=== PATIENT | female | born 1995 | race Caucasian/White ===

== ENCOUNTER 2018-06-08 17:05 | Outpatient (CLI) | payer MEDICAID, SELFPAY ==
[2018-06-08 17:18] VITALS: BMI 38.4
[2018-06-08 17:37] LABS: Red Blood Cells-Urine 0 SEEN /hpf (0-5)
[2018-06-08 17:46] LABS: Color, Urine Yellow (Yellow); Glucose, Dipstick Normal (Normal); Ketone-Dipstick 50 mg/dl (Negative); Leukocyte Esterase-Dipstick 25 /ul (Negative); Nitrite-Dipstick Negative (Negative); Occult Blood-Urine Negative /ul (Negative); Protein-Dipstick 15 mg/dl (Negative); Specific Gravity, Urine 1.025 (1.002-1.030); Urine Bilirubin Dipstick Negative (Negative); Urine Clarity Clear (Clear); Urine Urobilinogen 4 mg/dl (Normal)
[2018-06-08 18:07] LABS: White Blood Cells 0-5 SEEN /hpf (0-5)
[2018-06-08 18:08] LABS: Bacteria 1+ /hpf (None Seen); Mucous, Urine 1+ /hpf (<or=2+); Squamous Epithelial Cells - UA 0-5 SEEN /hpf (5-10)
--- NOTE | 2018-06-09 11:42 | PCM.HP.OB ---
- Problem List (1) uterine contractions in third trimester, antepartum Status: Acute (2) Dehydration during Status: Acute (3) Asymptomatic bacteriuria during Status: Acute History Date of Admission: 06/08/18 Final JEWEL: 07/23/18 Final JEWEL Source: US <20 weeks Gestational age: 33 Weeks and 5 Days History of this : This is a 23 year-old, G [], P [], at weeks gestational age. Allergies No Known Allergies Allergy (Verified 01/24/16 13:47) Home Medications: Home Medications Vits [Prenatabs FA] 1 tablet PO DAILY 06/08/18 Vitamin Smoking Status: Never smoker Alcohol: None Number of Fetus(es): 1 Heart Tracing: Baseline 140, moderate variability, + accels, No decels TOCO Analysis: Initially q 2-3 minutes, then after PO hydration ctx spaced out to q 6-7 minutes apart History Past Pregnancies: Past Pregnancies Delivery Date Name GA/Weeks Outcome Route Weight Infant Gender Labor Length Anesthesia Delivery Location Provider FOB Labs: See [facility] Record - A Neg, other NOB labs in the normal range Expected Infant Delivery Method: Spontaneous Vaginal Number of Visits: ~ 11 visits Review of Systems Unable to obtain accurate/complete ROS d/t: Assessed by bead stringer Staff Physical Exam Vitals: See RN nursing assessment note for Vitals and Assessment Assessment/Plan All Active Problems uterine contractions in third trimester, antepartum (Acute) Dehydration during (Acute) Asymptomatic bacteriuria during (Acute) This is a 23 year-old, G [1], P [0], at 35+ weeks gestational age, Contractions, Dehydration of , Presumptive UTI, Category I FHT P: 1) Once hydrated - ctx noted to space out and patient reported pain was decreased. Encouraged 5-6 bottles of water daily (60-80 fl. oz.) 2) Rx Macrobid 100mg PO BID x 7 days - Rx sent to patient's listed [facility] 3) PTL precautions reviewed - patient to return to hospital with vaginal bleeding, PPROM or >5 ctx per hour 4) RTC as scheduled to [facility] Jackelyn LABOY
--- NOTE | 2018-06-09 11:46 | HP.PCM_ITS ---
- Problem List (1) uterine contractions in third trimester, antepartum Status: Acute (2) Dehydration during Status: Acute (3) Asymptomatic bacteriuria during Status: Acute History Date of Admission: 06/08/18 Final JEWEL: 07/23/18 Final JEWEL Source: US <20 weeks Gestational age: 33 Weeks and 5 Days History of this : This is a 23 year-old, G [], P [], at weeks gestational age. Allergies No Known Allergies Allergy (Verified 01/24/16 13:47) Home Medications: Home Medications Vits [Prenatabs FA] 1 tablet PO DAILY 06/08/18 Vitamin Smoking Status: Never smoker Alcohol: None Number of Fetus(es): 1 Heart Tracing: Baseline 140, moderate variability, + accels, No decels TOCO Analysis: Initially q 2-3 minutes, then after PO hydration ctx spaced out to q 6-7 minutes apart History Past Pregnancies: Past Pregnancies Delivery Date Name GA/Weeks Outcome Route Weight Infant Gender Labor Length Anesthesia Delivery Location Provider FOB Labs: See [facility] Record - A Neg, other NOB labs in the normal range Expected Infant Delivery Method: Spontaneous Vaginal Number of Visits: ~ 11 visits Review of Systems Unable to obtain accurate/complete ROS d/t: Assessed by premium service representative Staff Physical Exam Vitals: See RN nursing assessment note for Vitals and Assessment Assessment/Plan All Active Problems uterine contractions in third trimester, antepartum (Acute) Dehydration during (Acute) Asymptomatic bacteriuria during (Acute) This is a 23 year-old, G [1], P [0], at 35+ weeks gestational age, Contractions, Dehydration of , Presumptive UTI, Category I FHT P: 1) Once hydrated - ctx noted to space out and patient reported pain was decreased. Encouraged 5-6 bottles of water daily (60-80 fl. oz.) 2) Rx Macrobid 100mg PO BID x 7 days - Rx sent to patient's listed [facility] 3) PTL precautions reviewed - patient to return to hospital with vaginal bleeding, PPROM or >5 ctx per hour 4) RTC as scheduled to [facility] Jackelyn LABOY
== END 2018-06-08 18:45 | disposition home or self-care (01) ==
LOC: WPOUT 17:14 → WP 17:24
PROVIDERS: Family Provider Student in an Organized Health Care Education/Training Program; PCP Student in an Organized Health Care Education/Training Program; Visit Provider Obstetrics & Gynecology
DX: O60.03 Preterm labor without delivery, third trimester (principal); O26.893 Other specified pregnancy related conditions, third trimester; E86.0 Dehydration; Z3A.33 33 weeks gestation of pregnancy
CPT/HCPCS: 59025; 59050; 81001; 87086; 87088; 99218; G0378

== ENCOUNTER 2018-07-01 09:40 | Outpatient (CLI) | payer MEDICAID, SELFPAY ==
[2018-07-01 10:02] VITALS: BMI 39.1
--- NOTE | 2018-07-02 12:11 | OB.TRI.NOTE ---
History of Present Illness Date of Service: 07/01/18 Was patient seen by the physician?: No Reason For Visit: R/O LABOR Date of Service: 07/01/18 Final JEWEL: 07/23/18 Final JEWEL Source: US <20 weeks Gestational age: 37 Weeks and 0 Days History of Present Illness: Presented for diarrhea and cramping. Allergies nitrofurantoin [From Macrobid] Allergy (Verified 07/01/18 10:03) Itching NST - FHR Rate Baby A Baseline: 130 Variability:: Moderate Accelerations:: 15 x 15 Decelerations:: None NST Reactive:: Yes FHR Category:: Category I Uterine Activity:: Irregular Impression/Plan A:False labor P: 1) D/C home
== END 2018-07-01 10:35 | disposition home or self-care (01) ==
LOC: WPOUT 09:44 → WP 09:44
PROVIDERS: Family Provider Student in an Organized Health Care Education/Training Program; PCP Student in an Organized Health Care Education/Training Program; Visit Provider Advanced Practice Midwife
DX: O47.1 False labor at or after 37 completed weeks of gestation (principal); Z3A.37 37 weeks gestation of pregnancy
CPT/HCPCS: 59025; 59050; 99218; G0378

== ENCOUNTER 2018-07-29 15:25 | Inpatient (IN) | payer MEDICAID, SELFPAY ==
[2018-07-29 17:14] LABS: Hemoglobin 10.9 g/dl (12.0-15.0); Mean Corp Hgb Conc 35.2 g/gl (32-36); Mean Corpuscular Hgb 29.9 pg (27.0-32.0); Mean Corpuscular Volume 84.9 fL (81-99); Mean Platelet Vol. 10.7 fl (6.2-12.0); Platelet Count 208 K/mm3 (150-450); RBC Distribution Width CV 15.2 % (11.6-14.6); RBC Distribution Width SD 45.4 fl (35.1-43.9); Red Blood Count 3.65 M/mm3 (4.2-5.4); White Blood Count 14.1 K/mm3 (4.4-11.0)
[2018-07-29 17:19] LABS: Scan Indicated on CBC? Y/N NO
[2018-07-29 17:29] VITALS: BMI 41.3
--- NOTE | 2018-07-29 18:28 | PCM.HP.OB ---
- Problem List (1) Premature rupture of membranes Status: Acute History Date of Admission: 06/08/18 Final JEWEL: 07/23/18 Final JEWEL Source: LMP Gestational age: 40 Weeks and 6 Days History of this : This is a 23 year-old, G [], P [], at weeks gestational age. Allergies nitrofurantoin [From Macrobid] Allergy (Verified 07/01/18 10:03) Itching Home Medications: Home Medications Vits [Prenatabs FA] 1 tablet PO DAILY 06/08/18 Smoking Status: Never smoker Alcohol: None Heart Tracing: FHT 150, moderate variability, accels, no decels, Category 1 Irregular uterine contractions 1cm/50%-2 per office exam. PROM, clear fluid History Past Pregnancies: Past Pregnancies Delivery Date Name GA/Weeks Outcome Route Weight Infant Gender Labor Length Anesthesia Delivery Location Provider FOB Labs: GBS negative Rubella positive HBsAG negative HIV negative A negative GC/CT negative Expected Infant Delivery Method: Spontaneous Vaginal Review of Systems Constitutional: Denies: Chills, Fever, Weight Change Cardiovascular: Denies: Chest Pain, Palpitations Respiratory: Denies: Cough, Shortness of breath at rest, Sputum production Gastrointestinal: Denies: Abdominal Pain, Nausea, Vomiting Genitourinary: Denies: Dysuria Psychiatric: Denies: Anxiety, Depression, Homicidal Ideations, Suicidal Ideations Physical Exam General: Alert, Oriented x3, No apparent distress HEENT: Atraumatic, Normocephalic Cardiovascular: Regular rate, Regular Rhythm, No murmurs Lungs: Clear to auscultation, Normal air movement, No rhonchi, No wheeze Abdomen: Gravid Extremities:: Other - BLE +1 edema, non pitting Neurological: Deep Tendon Reflexes 2+/4 and Symmetrical BONBON CREAM WARMER: Normal external genitalia Estimated gestational size: Appropriate for gestational size Presentation: Cephalic Cervix Dilation (cm): 1 Station: -2 Effacement (%): 50 Assessment/Plan All Active Problems uterine contractions in third trimester, antepartum (Acute) Dehydration during (Acute) Asymptomatic bacteriuria during (Acute) Premature rupture of membranes (Acute) This is a 23 year-old, G [1], P [0], at weeks gestational age. Premature Rupture of Membranes Post dates A: 1) Admit to L&D for PROM. 2) PO cytotec per protocol 3) IV and labs 4) Desires unmedicated . 5) for collaborative physician.
[2018-07-29] MEDS: miSOPROStol 25 MCG TABLET PO (19:26)
[2018-07-29] MEDS: 0.9% Saline Lock 10 ML Syringe IV (20:55)
[2018-07-29 22:39] LABS: Hematocrit 31.7 % (37-47); Hemoglobin 10.8 g/dl (12.0-15.0); Mean Corp Hgb Conc 34.1 g/gl (32-36); Mean Platelet Vol. 10.3 fl (6.2-12.0); Platelet Count 186 K/mm3 (150-450); RBC Distribution Width CV 15.6 % (11.6-14.6); Red Blood Count 3.73 M/mm3 (4.2-5.4); Scan Indicated on CBC? Y/N NO; White Blood Count 12.6 K/mm3 (4.4-11.0)
[2018-07-29 22:41] LABS: AST(SGOT) 9 U/L (15-37); Alanine Aminotransfer ALT/SGPT 9 U/L (13-56); Creatinine, Serum 0.73 mg/dL (0.55-1.02); EST Glomerular Filtration Rate 107 mL/min (>60); Est Glom Filt Rate - Afr Amer 129 mL/min (>60); Estimated Creatinine Clearance 100.84 ml/min; Uric Acid 4.2 mg/dL (2.6-6.0)
[2018-07-29 22:43] LABS: International Normalized Ratio 1.1; Prothrombin Time (Protime)PT. 13.7 SECONDS (11.7-14.9)
[2018-07-29 22:44] LABS: Partial Thromboplast Time 30.7 Seconds (24.1-36.2)
[2018-07-29 22:48] LABS: Protein, Urine (Random) 20.6 mg/dL (<11.9); Protein:Creat Ratio 389 mg/g CRE (0-200)
[2018-07-30] MEDS: miSOPROStol 25 MCG TABLET PO ×2 (00:06→04:46)
[2018-07-30] MEDS: Nalbuphine 10 MG/ML Ampul IV (01:27)
[2018-07-30] MEDS: 0.9% Saline Lock 10 ML Syringe IV (01:33)
[2018-07-30] MEDS: Lactated Ringers 1,000 ML 50 ML IV ×3 (04:25→23:11)
[2018-07-30] MEDS: Magnesium Sulfate 20 GM/500 ML BAG IV ×3 (04:46→13:52)
--- NOTE | 2018-07-30 07:47 | PCM.PN.BLA ---
Progress Note Severe range BP's noted around 10pm overnight. Pre-e labs obtained and nml, p/c ratio elevated. BP's then normal. Severe range BP again around 3:30 am. Given persistent severe range BP's and elevated p/c ratio, mag bolus followed by gtt started for seizure prophylaxis for severe pre-e. 20mg IV labetalol given around 6am this morning for another severe range BP. Repeat pre-e labs this morning.
[2018-07-30] MEDS: Labetalol 100 MG Tablet PO ×2 (08:17→20:35)
[2018-07-30 09:06] LABS: Hematocrit 30.7 % (37-47); Hemoglobin 10.5 g/dl (12.0-15.0); Mean Corp Hgb Conc 34.2 g/gl (32-36); Mean Corpuscular Hgb 29.1 pg (27.0-32.0); Mean Platelet Vol. 10.4 fl (6.2-12.0); Platelet Count 184 K/mm3 (150-450); RBC Distribution Width CV 15.6 % (11.6-14.6); RBC Distribution Width SD 48.3 fl (35.1-43.9); Red Blood Count 3.61 M/mm3 (4.2-5.4); White Blood Count 17.5 K/mm3 (4.4-11.0)
[2018-07-30 09:07] LABS: Scan Indicated on CBC? Y/N NO
[2018-07-30] MEDS: Oxytocin 30 units/NS 500 ml 30 UNITS/500 ML IV.SOLN IV (09:09)
[2018-07-30 09:12] LABS: International Normalized Ratio 1.1; Prothrombin Time (Protime)PT. 13.9 SECONDS (11.7-14.9)
[2018-07-30 09:13] LABS: Partial Thromboplast Time 30.7 Seconds (24.1-36.2)
[2018-07-30] MEDS: fentaNYL-bupivacaine (epidural) 100 ML BAG EPIDURAL ×2 (09:30→14:26)
[2018-07-30 09:38] LABS: Albumin, Serum 2.7 g/dL (3.2-5.0); BUN 9 mg/dL (7-18); BUN/Creat Ratio 13.4 RATIO (10-20); Creatinine, Serum 0.67 mg/dL (0.55-1.02); EST Glomerular Filtration Rate 118 mL/min (>60); Est Glom Filt Rate - Afr Amer 142 mL/min (>60); Estimated Creatinine Clearance 109.87 ml/min; Glucose 89 mg/dL (74-106); Protein, Total 6.7 g/dL (6.4-8.2); Uric Acid 4.4 mg/dL (2.6-6.0)
[2018-07-30 09:39] LABS: ALB/GLOB Ratio 0.7 RATIO (0.9-2.4); AST(SGOT) 9 U/L (15-37); Alanine Aminotransfer ALT/SGPT 10 U/L (13-56); Alkaline Phosphatase 218 U/L (45-117); Anion Gap 12 (5-15); Calcium,Total 7.8 mg/dL (8.5-10.1); Chloride 104 mmol/L (98-107); Potassium 3.3 mmol/L (3.5-5.1); Sodium Level 137 mmol/L (136-145)
[2018-07-30] MEDS: Ondansetron 4 MG/2 ML Vial IV ×2 (12:40→20:34)
--- NOTE | 2018-07-30 13:34 | PCM.PN.BLA ---
Progress Note S: Patient comfortable with epidural O: Cvx - /-2 FSE placed fhts - 135 with mod variability, accels; s/p period of minimal to moderate variability tocos - Q2-3 min A&P: continue pitocin induction severe preE - BP's reviewed & normal, on Mg
--- NOTE | 2018-07-30 13:38 | PN_ITS ---
Progress Note S: Patient comfortable with epidural O: Cvx - /-2 FSE placed fhts - 135 with mod variability, accels; s/p period of minimal to moderate varia bility tocos - Q2-3 min A&P: continue pitocin induction severe preE - BP's reviewed & normal, on Mg
[2018-07-30] MEDS: Acetaminophen 325 MG Tablet PO ×2 (14:37→20:35)
--- NOTE | 2018-07-30 17:16 | PCM.PN.BLA ---
Progress Note S: Patient comfortable with epidural O: cvx - 4.5/100/-2 fhts 140 with moderate variability, variables & accels, still having periods of minimal variability tocos Q1-4 minutes A&P: continue pitocin induction FWB - remains overall reassuring, strip reviewed with nursing staff continue Mg for preE
[2018-07-30] MEDS: Oxytocin 30 units/NS 500 ml 30 UNITS/500 ML IV.SOLN 334 UNITS IV (22:23)
[2018-07-30] MEDS: Oxytocin 30 units/NS 500 ml 30 UNITS/500 ML IV.SOLN 167 UNITS IV (23:00)
--- NOTE | 2018-07-30 23:04 | PCM.OB.VAG ---
Vaginal Delivery Maternal Presentation: Active Labor Method of Induction: Pitocin, Amniotomy, Cytotec Medical Reason for Induction: Preeclampsia, eclampsia, - - SROM Amniotic Fluid Description: Moderate meconium - just before delivery & was previously clear Final JEWEL: 07/23/18 Gestational age: 41 Weeks and 0 Days Date of Procedure: 07/30/18 Pre-Operative Diagnosis: SROM, Severe preeclampsia Post-Operative Diagnosis: Same Surgery/ Procedure Performed: Spontaneous Vaginal Delivery Type of Anesthesia: Epidural Description of Procedure: Patient prepped & draped when c/c/+2. She pushed well to +3 station. FSE showed tachycardia. Then then FSE was not reading. External monitoring was attempted but FHT's were similar to maternal heart rate. 2nd degree episiotomy cut. Patient then pushed & the head delivered with the assistance of the Ritgen maneuver. The head was gently guided to allow delivery of the anterior & posterior shoulders. No excess traction placed on the head. Body delivered. 3VC clamped & cut. Infant taken to the warmer where pediatrics team present. Placenta delivered with gentle traction. Good uterine tone obtained. Presentation: MELITA Placental Delivery Description: Expressed Placenta Disposition: [facility] Cord Vessel Description: 3 Vessels Cord Gases drawn per routine: ABG, VBG Cord Entanglement: None Estimated Blood Loss: 350ml Infant A gender: Male (1 minute): 8 (5 minute): 9 Episiotomy Description: Midline - repaired with 3-0 vicryl, 2nd degree Laceration: None Medications given after delivery: IV Pitocin
[2018-07-31] VITALS (21 sets, daily range): BP systolic 99–136; BP diastolic 47–87; PULSE 77–118; RESP 14–18; TEMP 35.9–37.3; O2SAT 97–98
[2018-07-31] MEDS: Magnesium Sulfate 20 GM/500 ML BAG IV ×2 (00:09→10:12)
[2018-07-31] MEDS: Ibuprofen 600 MG Tablet PO ×3 (01:45→18:10)
[2018-07-31] MEDS: Dibucaine 30 GM Tube 1 APPLIC TOPICAL (03:13)
--- NOTE | 2018-07-31 07:54 | PCM.PN.OB ---
Patient Problems: Active and Suspected Problems Premature rupture of membranes (Acute) Subjective: Patient sitting up in bed at this time - just finishing session. Denies any issues or complaints. Reports some muscle soreness, cramping and rectal/perineal discomfort secondary to healing of episiotomy. Patient denies headache, denies heavy bleeding. Magnesium Sulfate IV infusing as ordered until ~2200 this evening. Objective: Nipples without cracks or blisters FF midline 2FB below umbilicus Neuro exam WNL, +2/4 reflexes in LE without clonus Small rubra lochia - Physical Exam General: Alert, Oriented x3, Cooperative HEENT: PERRLA Neck: Supple Lungs: Normal air movement Cardiovascular: Regular rate, Regular Rhythm Abdomen: Non Tender, Non-Distended Extremities: No Calf Tenderness, Peripheral Pulses Normal Skin: No rashes, No breakdown Musculoskeletal: No Tenderness to Palpation of Joints or Extremities Neurological: Deep Tendon Reflexes 2+/4 and Symmetrical Psych/Mental Status: Normal Affect, Alert and oriented to time, place, person, mood and affect Vital Signs Temp Pulse Resp BP Pulse Ox 97.0 F L 104 H 16 118/49 L 97 07/31/18 07:00 07/31/18 07:00 07/31/18 07:00 07/31/18 07:00 07/31/18 07:00 Oxygen Delivery Method Room Air Weight: 233 lb 9.6 oz Body Mass Index (BMI) 41.3 Intake and Output for Last 24 Hours 07/29/18 07/30/18 07/31/18 23:59 23:59 23:59 Intake Total 2445 / 2445 785 / 785 Output Total 150 / 150 1330 / 1330 2375 / 2375 Balance -150 / -150 1115 / 1115 -1590 / -1590 Laboratory Tests Past 24 Hrs 07/30/18 07/30/18 07/30/18 08:50 08:50 08:50 WBC 17.5 H RBC 3.61 L Hgb 10.5 L Hct 30.7 L MCV 85.0 MCH 29.1 MCHC 34.2 RDW 15.6 H RDW Differential 48.3 H Plt Count 184 MPV 10.4 PT 13.9 INR 1.1 APTT 30.7 Sodium 137 Potassium 3.3 L Chloride 104 Carbon Dioxide 21.0 Anion Gap 12 BUN 9 Creatinine 0.67 Estim Creat Clear Calc 109.87 Est GFR (MDRD) Af Amer 142 Est GFR (MDRD) Non-Af 118 BUN/Creatinine Ratio 13.4 Glucose 89 Uric Acid 4.4 Calcium 7.8 L Total Bilirubin 1.00 AST 9 L ALT 10 L Alkaline Phosphatase 218 H Total Protein 6.7 Albumin 2.7 L Globulin 4.0 Albumin/Globulin Ratio 0.7 L Medical Necessity - Tobacco Use Smoking Status: Never smoker Assessment/Plan All Active Problems uterine contractions in third trimester, antepartum (Acute) Dehydration during (Acute) Asymptomatic bacteriuria during (Acute) Premature rupture of membranes (Acute) 23 y/o s/p with complication of pre-eclampsia with severe features, PPD #1 P: 1) Continue IV Magnesium sulfate as ordered until 24 hours PP 2) Last BP low - consult with Dr. Silvestre, will hold upcoming Labetalol dose at this time. Will reinitiate Labetalol if elevated blood pressures are still noted 3) consultation today 4) Continue PP orders Jackelyn LABOY
[2018-07-31] MEDS: Acetaminophen 500 MG Tablet 1000 MG PO ×2 (08:25→17:04)
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
--- NOTE | 2018-07-31 14:20 | NURSING ---
This nursing unit coordinator reviewed the charting completed by the student nurse, Keke Bunch.
--- NOTE | 2018-07-31 22:00 | NURSING ---
mag campos'kyra at this time as ordered
[2018-07-31] MEDS: 0.9% Saline Lock 10 ML Syringe IV (22:18)
[2018-08-01] VITALS (11 sets, daily range): BP systolic 118–141; BP diastolic 57–83; PULSE 97–107; RESP 16–18; TEMP 36.6–37.1; O2SAT 97–98
[2018-08-01] MEDS: Dibucaine 30 GM Tube 1 APPLIC TOPICAL (02:05)
--- NOTE | 2018-08-01 08:39 | PCM.PN.OB ---
Patient Problems: Active and Suspected Problems Premature rupture of membranes (Acute) Subjective: Patient denies complaints. - Physical Exam General: Alert, Oriented x3 Abdomen: Soft, Non Tender, Non-Distended - ff mid & below umb Extremities: No Calf Tenderness, Edema - 2+ Vital Signs Temp Pulse Resp BP Pulse Ox 98.3 F 102 H 16 135/76 H 98 08/01/18 02:00 08/01/18 05:05 08/01/18 05:05 08/01/18 05:05 08/01/18 05:05 Oxygen Delivery Method Room Air Weight: 233 lb 9.6 oz Body Mass Index (BMI) 41.3 Intake and Output for Last 24 Hours 07/30/18 07/31/18 08/01/18 23:59 23:59 23:59 Intake Total 2445 / 2445 3352 / 3352 Output Total 1330 / 1330 4199 / 4199 750 / 750 Balance 1115 / 1115 -847 / -847 -750 / -750 Medical Necessity - Tobacco Use Smoking Status: Never smoker Assessment/Plan All Active Problems uterine contractions in third trimester, antepartum (Acute) Dehydration during (Acute) Asymptomatic bacteriuria during (Acute) Premature rupture of membranes (Acute) PPD#2 Severe preE - s/p Mg, BP's trending up but still normal. Will monitor today. Possible discharge home later today if BP's remain normal. Routine care.
--- NOTE | 2018-08-01 13:23 | PCM.DCVAG ---
Discharge Diet: No Restrictions Discharge Activity: May Drive, May Shower May resume sexual activity in: 6 weeks Weight Bearing Status: Weight bearing as tolerated Additional Instructions: If you experience any of the following, contact your healthcare provider. Bleeding that soaks a pad every hour for 2 hours Fever 100.4 or higher Unrelieved incision or abdominal pain Swelling, redness, discharge or bleeding from your incision or episiotomy site Your incision begins to separate Problems urinating (including inability to urinate or burning while urinating). Visual changes Severe headache Flu-like symptoms Pain or redness in one of both of your breasts Pain, warmth, tenderness or swelling in your legs, especially the calf area Frequent nausea and vomiting Symptoms of depression or anxiety If you experience any of the following, call 911 or go to the nearest Emergency Room. Chest pain Problems breathing Seizure activity Partial or complete paralysis of a body part, slurred speech, weakness or drooping of the face, or a sudden inability to walk or hold your balance Allergies/Adverse Reactions: Allergies nitrofurantoin [From Macrobid] Allergy (Verified 07/29/18 19:59) Itching Medications to take at Discharge Vits [Prenatabs FA ] 1 tablet PO DAILY 06/08/18 Primary Care Physician: Constantine Slater DO [Primary Care Provider] - Test Results: Test results from this visit will be discussed in further detail at your follow-up appointment, if applicable.
--- NOTE | 2018-08-01 13:26 | DCINST_ITS ---
Discharge Diet: No Restrictions Discharge Activity: May Drive, May Shower May resume sexual activity in: 6 weeks Weight Bearing Status: Weight bearing as tolerated Additional Instructions: If you experience any of the following, contact your healthcare provider. * Bleeding that soaks a pad every hour for 2 hours * Fever 100.4 or higher * Unrelieved incision or abdominal pain * Swelling, redness, discharge or bleeding from your incision or episiotomy site * Your incision begins to separate * Problems urinating (including inability to urinate or burning while urinating). * Visual changes * Severe headache * Flu-like symptoms * Pain or redness in one of both of your breasts * Pain, warmth, tenderness or swelling in your legs, especially the calf area * Frequent nausea and vomiting * Symptoms of depression or anxiety If you experience any of the following, call 911 or go to the nearest Emergency Room. * Chest pain * Problems breathing * Seizure activity * Partial or complete paralysis of a body part, slurred speech, weakness or drooping of the face, or a sudden inability to walk or hold your balance Allergies/Adverse Reactions: Allergies nitrofurantoin [From Macrobid] Allergy (Verified 07/29/18 19:59) Itching Medications to take at Discharge Vits [Prenatabs FA ] 1 tablet PO DAILY 06/08/18 Primary Care Physician: Constantine Slater DO [Primary Care Provider] - Test Results: Test results from this visit will be discussed in further detail at your follow- up appointment, if applicable.
--- NOTE | 2018-08-01 15:28 | NURSING ---
Dr. Mojica notified that pt's BP is 141/72, sitting, on left arm. Order to start labetolol 100 mg po BID-starting now and then again at 2200 tonight.
[2018-08-01] MEDS: Labetalol 100 MG Tablet PO ×2 (15:55→22:44)
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
[2018-08-01] MEDS: Senna/Docusate Sodium 1 Tablet PO (20:06)
[2018-08-02 00:08] VITALS: BP 131/60; PULSE 96
[2018-08-02] MEDS: Acyclovir 200 MG Capsule 400 MG PO ×2 (00:08→06:21)
[2018-08-02] MEDS: Labetalol 100 MG Tablet PO (00:08)
[2018-08-02 04:25] VITALS: BP 131/68; PULSE 95; RESP 16; TEMP 36.5; O2SAT 98
[2018-08-02 08:00] VITALS: BP 132/69; PULSE 85; RESP 18; TEMP 36.6; O2SAT 99
--- NOTE | 2018-08-02 08:47 | PCM.PN.BLA ---
Progress Note S: Patient doing well. Brie reg diet without N/V. Ambulating and voiding without difficulty. No BM. Lochia normal. Pumping and supplementing with formula. No fevers, LÓPEZ, vision changes, RUQ pain, epigastric pain. No uncontrolled pain. No leg pain. O: AF, VSS, BP normal on labetalol Gen: NAD, well appearing Chest: No increased resp effort Abd: Soft, nontender LE: +Edema bilaterally, no calf tenderness A/P: Doing well . D/c home today. She is unsure of control. Discussed with her to call to follow up in 1 week for BP check and in 4-6 weeks. Will send rx for Labetalol and Acyclovir for cold sores. Reviewed warning signs/symptoms of pre-e. Reviewed return precautions
--- NOTE | 2018-08-02 08:51 | PCM.DCVAG ---
Discharge Diet: No Restrictions Discharge Activity: Return to Normal Activity, May Shower May resume sexual activity in: 6 weeks Weight Bearing Status: Weight bearing as tolerated Call your doctor if you observe: Fever of 101 or Higher, Inability to urinate, Inability to have a bowel movement, Using more than one pad per hour, Shortness of breath, Chest pain, Calf discomfort, Uncontrolled pain Additional Instructions: If you experience any of the following, contact your healthcare provider. Bleeding that soaks a pad every hour for 2 hours Fever 100.4 or higher Unrelieved incision or abdominal pain Swelling, redness, discharge or bleeding from your incision or episiotomy site Your incision begins to separate Problems urinating (including inability to urinate or burning while urinating). Visual changes Severe headache Flu-like symptoms Pain or redness in one of both of your breasts Pain, warmth, tenderness or swelling in your legs, especially the calf area Frequent nausea and vomiting Symptoms of depression or anxiety If you experience any of the following, call 911 or go to the nearest Emergency Room. Chest pain Problems breathing Seizure activity Partial or complete paralysis of a body part, slurred speech, weakness or drooping of the face, or a sudden inability to walk or hold your balance Allergies/Adverse Reactions: Allergies nitrofurantoin [From Macrobid] Allergy (Verified 07/29/18 19:59) Itching Medications to take at Discharge Vits [Prenatabs FA ] 1 tablet PO DAILY 06/08/18 When: Follow up in 1 week for BP check and in 4-6 weeks. Primary Care Physician: Constantine Slater DO [Primary Care Provider] - Test Results: Test results from this visit will be discussed in further detail at your follow-up appointment, if applicable.
--- NOTE | 2018-08-02 08:52 | DCINST_ITS ---
Discharge Diet: No Restrictions Discharge Activity: Return to Normal Activity, May Shower May resume sexual activity in: 6 weeks Weight Bearing Status: Weight bearing as tolerated Call your doctor if you observe: Fever of 101 or Higher, Inability to urinate, Inability to have a bowel movement, Using more than one pad per hour, Shortness of breath, Chest pain, Calf discomfort, Uncontrolled pain Additional Instructions: If you experience any of the following, contact your healthcare provider. * Bleeding that soaks a pad every hour for 2 hours * Fever 100.4 or higher * Unrelieved incision or abdominal pain * Swelling, redness, discharge or bleeding from your incision or episiotomy site * Your incision begins to separate * Problems urinating (including inability to urinate or burning while urinating). * Visual changes * Severe headache * Flu-like symptoms * Pain or redness in one of both of your breasts * Pain, warmth, tenderness or swelling in your legs, especially the calf area * Frequent nausea and vomiting * Symptoms of depression or anxiety If you experience any of the following, call 911 or go to the nearest Emergency Room. * Chest pain * Problems breathing * Seizure activity * Partial or complete paralysis of a body part, slurred speech, weakness or drooping of the face, or a sudden inability to walk or hold your balance Allergies/Adverse Reactions: Allergies nitrofurantoin [From Macrobid] Allergy (Verified 07/29/18 19:59) Itching Medications to take at Discharge Vits [Prenatabs FA ] 1 tablet PO DAILY 06/08/18 When: Follow up in 1 week for BP check and in 4-6 weeks. Primary Care Physician: Constantine Slater DO [Primary Care Provider] - Test Results: Test results from this visit will be discussed in further detail at your follow- up appointment, if applicable.
[2018-08-02 10:20] VITALS: BP 135/84; PULSE 87
[2018-08-02] MEDS: Labetalol 100 MG Tablet 200 MG PO (10:20)
== END 2018-08-02 11:15 | disposition home or self-care (01) | DRG 372 ==
PROVIDERS: Obstetrics & Gynecology; Admitting Provider Obstetrics & Gynecology; Family Provider Student in an Organized Health Care Education/Training Program; PCP Student in an Organized Health Care Education/Training Program; Referring Provider Obstetrics & Gynecology; Visit Provider Obstetrics & Gynecology
DX: O15.1 Eclampsia complicating labor (principal); Z37.0 Single live birth; O77.0 Labor and delivery complicated by meconium in amniotic fluid; O48.0 Post-term pregnancy; Z3A.41 41 weeks gestation of pregnancy; O76 Abnormality in fetal heart rate and rhythm complicating labor and delivery; O42.92 Full-term premature rupture of membranes, unspecified as to length of time between rupture and onset of labor
CPT/HCPCS: 59025; 59050; 80053; 82565; 82570; 84156; 84450; 84460; 84550; 85027; 85610; 85730; 86850; 86900; 99218; J7120; A4216; G0378; J2405; J3490

== ENCOUNTER → 2020-09-16 11:23 | Outpatient (CLI) | payer MEDICAID, SELFPAY ==
[2020-09-16 10:14] VITALS: BMI 41.1
--- NOTE | 2020-09-16 11:26 | US_ITS ---
STUDY: FIRST TRIMESTER OBSTETRICAL ULTRASOUND REASON FOR EXAM: Female, 25 years old viability LMP: 07/26/2020 TECHNIQUE: Transvaginal TECHNICAL QUALITY: Adequate. PRIOR ULTRASOUND: None. FINDINGS: There is visualization of a single gestational sac in a normal intrauterine position. The mean sac diameter (MSD) measures 1.89 cm, indicating an estimated gestational age (EGA) of 6 weeks, 6 days. The gestational sac shape is within normal limits. There is no demonstrated yolk sac. The placenta is non-visualized. There is no demonstrated embryo ( pole). The estimated gestation age (EGA) by LMP is 7 weeks, 3 days. The estimated date of delivery (JEWEL) by LMP is 04/24/2021. The estimated gestation age (EGA) by US is 6 weeks, 6 days. The estimated date of delivery (JEWEL) by US is 05/06/2021. The uterus measures 11.5 cm x 7.9 cm x 6 cm. There is no demonstrated uterine fibroid. The cervix is closed. The right ovary is nonvisualized. The left ovary measures 2.5 cm x 2.3 cm x 1.3. There is no left ovarian cyst. There is no visualized left adnexal mass or complex lesion. There is no fluid in the cul de sac. US/Init OB < 14Wks US IMPRESSION: Intrauterine gestational sac corresponding to a gestational age of 6 weeks and 6 days. No yolk sac or pole is seen at this time. Electronically Signed: Aureliano Sim, at 12:35 EST , Service support ,
== END ==
PROVIDERS: PCP Student in an Organized Health Care Education/Training Program; Referring Provider Obstetrics & Gynecology; Visit Provider Obstetrics & Gynecology
DX: O36.80X0 Pregnancy with inconclusive fetal viability, not applicable or unspecified (principal); Z3A.00 Weeks of gestation of pregnancy not specified
CPT/HCPCS: 76801

== ENCOUNTER → 2020-09-23 12:47 | Outpatient (CLI) | payer MEDICAID, SELFPAY ==
[2020-09-16 10:14] VITALS: BMI 41.1
[2020-09-16 12:59] VITALS: BMI 41.1
--- NOTE | 2020-09-23 12:52 | US_ITS ---
STUDY: FIRST TRIMESTER OBSTETRICAL ULTRASOUND REASON FOR EXAM: Female, 25 years old viability LMP: Unknown. TECHNIQUE: Transvaginal TECHNICAL QUALITY: Adequate. PRIOR ULTRASOUND: Comparison is made with prior study dated 09/16/2020. FINDINGS: There is visualization of a single gestational sac in a normal intrauterine position. The mean sac diameter (MSD) measures 2 cm, indicating an estimated gestational age (EGA) of 6 weeks, 6 days. The gestational sac shape is within normal limits. There is no demonstrated yolk sac. The placenta is non-visualized. There is no demonstrated embryo ( pole). The estimated gestation age (EGA) by LMP is 9 weeks, 6 days. The estimated date of delivery (JEWEL) by LMP is 04/22/2021. The estimated gestation age (EGA) by US is 60 weeks, 6 days. The estimated date of delivery (JEWEL) by US is 05/13/2020. The uterus measures 11.1 cm x 7.4 cm x 6.9 cm. There is no demonstrated uterine fibroid. The cervix is closed. The right ovary is nonvisualized. The left ovary measures 3 cm x 1.4 cm x 1.6 cm. There is no left ovarian cyst. There is no visualized left adnexal mass or complex lesion. There is no fluid in the cul de sac. US/Transvaginal w/Preg US IMPRESSION: Intrauterine gestational sac. No evidence of a yolk sac or pole. This may represent a blighted ovum. Electronically Signed: Aureliano Sim, at 13:37 EST , Service support ,
== END ==
PROVIDERS: PCP Student in an Organized Health Care Education/Training Program; Referring Provider Obstetrics & Gynecology; Visit Provider Obstetrics & Gynecology
DX: Z34.90 Encounter for supervision of normal pregnancy, unspecified, unspecified trimester (principal)
CPT/HCPCS: 76817

== ENCOUNTER 2020-09-28 21:01 | Emergency (ER) | payer MEDICAID, SELFPAY ==
[2020-09-28 15:09] VITALS: BMI 40.6
[2020-09-28 21:02] VITALS: BP 150/100; PULSE 93; RESP 18; TEMP 36.3; O2SAT 96; BMI 40.9
--- NOTE | 2020-09-28 21:16 | US_ITS ---
STUDY: FIRST TRIMESTER OBSTETRICAL ULTRASOUND REASON FOR EXAM: Female, 25 years old LIGHT BLEEDING WITH --GETTING HEAVIER RECENTLY LMP: 07/25/2020 TECHNIQUE: Transvaginal TECHNICAL QUALITY: Adequate. PRIOR ULTRASOUND: 09/23/2020 FINDINGS: There is visualization of a single gestational sac in a normal intrauterine position. The mean sac diameter (MSD) measures 1.97 cm, indicating an estimated gestational age (EGA) of 6 weeks, 6 days. The gestational sac shape is within normal limits. There is no demonstrated yolk sac. The placenta is non-visualized. There is no demonstrated embryo ( pole). The estimated gestation age (EGA) by LMP is 9 weeks, 2 days. The estimated date of delivery (JEWEL) by LMP is 05/01/2021. The estimated gestation age (EGA) by US is 6 weeks, 6 days. The estimated date of delivery (JEWEL) by US is 05/18/2021. The uterus measures 11.7 x 9 x 6.2 cm. There is no demonstrated uterine fibroid. The cervix is closed. The right ovary measures 2.7 x 2.2 x 2.2 cm. There is a 1.5 x 1.2 x 1.2 cm right ovarian cyst. There is no visualized right adnexal mass or complex lesion. The left ovary measures 3 x 2.2 x 1.5 cm. There is no left ovarian cyst. There is no visualized left adnexal mass or complex lesion. There is no fluid in the cul de sac. US/Transvaginal w/Preg US IMPRESSION: Intrauterine gestational sac without pole or yolk sac at 6 weeks 6 day gestation IV suspicious for blighted ovum. No adnexal masses, large pelvic fluid or ovarian torsion. Electronically Signed: Albertina Amezquita MD at 0:00 EST , Service support ,
--- NOTE | 2020-09-28 22:48 | ED.VISSUMM ---
- ER Visit Summary Date of Service: 09/28/20 Chief Complaint: Vaginal bleeding in History of Present Illness: The patient is a 25 F presenting with vaginal bleeding in . She states this started 2 days ago. She states it started out as light spotting and is now similar to light period She denies abdominal cramping. She is G2, P1. She believes she is approximately 6 to 8 weeks . Physical Examination: Vitals are stable. Patient is afebrile. Alert no acute distress. HEENT exam is unremarkable. Neck is supple. Lungs are clear and equal bilaterally. Heart is regular rate and rhythm. Abdomen is soft nontender nondistended. No guarding or rebound Pelvic exam: declined Extremities are unremarkable. Skin is warm and dry. Remainder of exam is unremarkable. Emergency Department Course and Treatment: hCG quant [id number]. Blood type A negative. Pelvic ultrasound shows Intrauterine gestational sac without pole or yolk sac at 6 weeks 6 day gestation IV suspicious for blighted ovum. No adnexal masses, large pelvic fluid or ovarian torsion. Patient is resting comfortably on reevaluation. Discussed with Dr. Moore. She has an appointment with her tomorrow. Patient will follow-up tomorrow as scheduled. Advised return to the ED for worsening complaints. Disposition: Discharge home Impression: Vaginal bleeding in , blighted ovum This note was generated with Dodon[employer] dictation software. It may contain incorrect words, spelling, and punctuation that were not noted in review of the chart prior to signing ED Disposition - Plan for ED Patient: Instructions: ED Possible Miscarriage Threatened Referrals: Sharmin Moore MD [STAFF PHYSICIAN] -
[2020-09-28 23:02] LABS: hCG Titer Quant., Serum 19047 mIU/mL (1-3)
[2020-09-28 23:18] VITALS: BP 133/65; PULSE 75; RESP 16; O2SAT 100
[2020-09-29] MEDS: Acetaminophen 500 MG Tablet 1000 MG PO (00:04)
--- NOTE | 2020-09-29 00:16 | ED.DEP ---
ED Disposition - Plan for ED Patient: Instructions: ED Possible Miscarriage Threatened Referrals: Sharmin Moore MD [STAFF PHYSICIAN] -
--- NOTE | 2020-09-29 07:49 | ED.RN ---
Lab called and needed rhogam paperwork printed out. Order entered and sent to lab.
== END 2020-09-29 01:24 | disposition home or self-care (01) ==
LOC: ED 21:44
PROVIDERS: Emergency Provider Emergency Medicine; PCP Student in an Organized Health Care Education/Training Program
DX: O46.90 Antepartum hemorrhage, unspecified, unspecified trimester (principal); O02.0 Blighted ovum and nonhydatidiform mole; Z3A.01 Less than 8 weeks gestation of pregnancy
CPT/HCPCS: 36415; 76817; 84702; 86900; 86901; 90384; 96372; 99282; J2790

== ENCOUNTER 2020-10-01 12:47 | Day surgery (SDC) | payer MEDICAID, SELFPAY ==
[2020-09-29 10:48] VITALS: BMI 40.6
[2020-10-01] VITALS (7 sets, daily range): BP systolic 112–127; BP diastolic 61–71; PULSE 77–95; RESP 16–18; TEMP 36.8–37.7; O2SAT 95–99; BMI 40.4
--- NOTE | 2020-10-01 13:02 | HP.PCM_ITS ---
- Problem List (1) Missed Status: Acute History and Physical Date of Admission: 10/01/20 Intake Vital Signs 09/29/20 Height 5 ft 5 in 09/29/20 Weight: 244 lb 09/28/20 BMI 40.6 Intake Visit Reasons: ?SAB Chief Complaint: possible SAB ER follow up Collision Repairer Required: No Is patient in pain?: No Allergies nitrofurantoin [From Macrobid] Allergy (Verified 09/29/20 10:49) Itching Medications ibuprofen 800 mg tablet 800 mg PO Q8H PRN #30 tab 09/29/20 [Rx Confirmed 09/29/20] misoprostol 200 mcg tablet 800 mcg PO Q24H 1 Days #8 tab 09/29/20 [Rx Confirmed 09/29/20] oxycodone-acetaminophen 5 mg-325 mg tablet 1 tab PO Q6H PRN #8 tab 09/29/20 [Rx Confirmed 09/29/20] Post menopausal: No Patient : Yes : No [facility] Surgical History (Updated 09/29/20 @ 10:49 by Guerline Aguiar) History of ankle surgery (Acute) S/P right knee surgery (Resolved) Family History Mother Diabetes Hypertension Brother Diabetes Grandfather Diabetes Father CVA (cerebral vascular accident) Hypertension Grandmother Breast cancer Lung cancer Social History (Updated 09/29/20 @ 12:[address] Yumiko Obrien MD) Smoking Status: Never smoker alcohol intake: never substance use type: does not use caffeine: Yes what type of physical activity do you participate in: walking seatbelt use: always do you feel safe at home: Yes additional social history: Boyfriend-[place] ROMANO ?SAB: Details: JOE MARIEE is a 25 year old who presents for follow-up of viability. Seen in ER last night for bleeding. Had passage of quarter sized clots after seen in ER. Reports cramping after ultrasound, but otherwise not having pain. update- 10/01 now having incresaed pain and crmaping, requesting to proceed with d and c Pregancy History 2 Elective abortions Hx Para 1 Spontaneous abortions Hx # Term Pregnancies Ectopic pregnancies Hx # Pregnancies Multiple births # of living children Past Pregnancies Del. Date Name GA/Weeks Outcome Route Bth Weight [facility] live - full term 9lbs 1oz Male 36 hours epidural [facility] Dr. Yunior Callahan Delivery Date: 07/30/18 Pre-eclampsia during labor, HR decels, episiotomy Flakita,Marsha ROS Const Constitutional: Denies chills, fatigue or fever(s) : Denies blood in urine, pelvic pain, urinary urgency, vaginal discharge, vaginal dryness, vaginal odor or vaginal itching Exam Const General: cooperative, healthy appearing, comfortable, well developed, well groomed Neck Neck: normal visual inspection, full ROM Resp Effort & Inspection: normal respiratory effort, able to speak in complete sentences, symmetric chest movement Cardio Rate: regular rate Skin General: no rashes or lesions noted, elasticity normal, turgor normal Lesions: no lesions Rashes: no rashes Neuro General: alert, awake, oriented x3 Cranial Nerves: CN's II-XI intact bilaterally, PERRL, EOM intact bilaterally Cognition: normal cognition Speech: speech normal Gait: normal gait Extrem General: normal to inspection, full ROM, no pedal edema Psych Appearance: grossly normal Mental Status: mental status grossly normal Mood: congruent mood Affect: normal affect Speech and Movement: speech and movement normal Attitude: cooperative Thought Process: normal Thought Content: normal Assessment & Plan 1. Missed O02.1 Plan plan suction d and c due to persistent cramping and patient request. After discussing the patient's diagnosis and treatment plan options, patient wishes to proceed with surgical management. I have discussed with the patient the risks, benefits, and alternatives of the procedure which include but are not limited to risks of anesthesia, bleeding, infection, possible damage to bowel, bladder, or surrounding vasculature which could lead to additional surgery to evaluate any complications. Patient agrees to procedure and wishes to proceed. ACOG/uptodate references given for additional information regarding procedure. Plan Detail Other Medications New: misoprostol 800 mcg (4 x 200 mcg) PO Q24H 1 day 8 tabs 0RF oxycodone-acetaminophen 5-325 mg (Percocet) 1 tab PO Q6H PRN 8 tabs 0RF pain ibuprofen 800 mg PO Q8H PRN 30 tabs 1RF pain Coding Level of Care Code Off vis,est,level 3 Diagnoses Missed O02.1 UPDATE- I have seen the patient and performed any clinically relevant updates to the history and physical exam. Sharmin Moore MD
[2020-10-01 13:40] LABS: Absolute Lymphocyte Count 1.63 X10^3/uL (0.83-4.51); Absolute Neutrophil Count 5.3 X10^3/uL (2.0-7.7); Basophil# 0.04 X10^3/uL; Basophil% 0.5 % (0-1); Eosinophil# 0.12 X10^3/uL; Eosinophils% 1.6 % (0-5); Hematocrit 36.2 % (37-47); Lymphocyte # 1.63 X10^3/ul (4.0); Lymphocyte % 21.1 % (19-41); Mean Corp Hgb Conc 33.1 g/dL (32-36); Mean Corpuscular Hgb 27.5 pg (27.0-32.0); Mean Platelet Vol. 10.5 fl (6.2-12.0); Monocyte# 0.58 X10^3/uL; Monocyte% 7.5 % (0-10); NRBC Flagged by Analyzer 0 % (0-5); Neutrophil # 5.31 X10^3/uL (2.7-7.7); Neutrophil % 68.8 % (47-70); Platelet Count 212 K/mm3 (150-450); RBC Distribution Width CV 12.9 % (11.6-14.6); RBC Distribution Width SD 38.5 fl (35.1-43.9); Red Blood Count 4.36 M/mm3 (4.2-5.4); White Blood Count 7.7 K/mm3 (4.4-11.0)
[2020-10-01] MEDS: Lactated Ringers 1,000 ML 125 ML IV (13:49)
[2020-10-01] MEDS: Doxycycline 100 MG CAPSULE PO (13:50)
--- NOTE | 2020-10-01 15:00 | POC_PTH ---
PATIENT: JOE MARIEE LOC: [facility] U#:[id number] AGE/SX: 25/ ROOM: RE10/01/[address]: Dr. Sharmin Moore MD : 1995 BED: DIS: 10/01/2020 SPEC #: [id number] RECD: 10/04/20 07:45 STATUS: KYLER REAsher #: [id number] ZACK: 10/01/20 15:[address]: Sharmin Moore DEPT: SURGICAL PATHOLOGY RECD BY: Laura Elliott ENTERED: 10/04/20 08:41 SP TYPE: PROD CONC OTHR DR: Dr. Constantine Slater, Tissues: Product of conception, NOS Procedures: Surgery Specimen Level IV HEADER OPERATION: Suction dilation and curettage PRE-OP DIAGNOSIS: Missed TISSUE SUBMITTED: Products of conception MICROSCOPIC DIAGNOSIS Endometrium, curettage: Decidualized tissue, trophoblastic cells and secretory endometrium suggestive of products of conception. AM:corrine 10/07/20 COMMENT Chorionic villi are not identified. Clinical correlation is suggested. Case has been reviewed in consultation with Dr. Barrow who concurs with the above diagnosis. IDC:SUMA MICROSCOPIC DESCRIPTION Slides are reviewed. GROSS DESCRIPTION Received in fixative is one container labeled with the patient's name and designated products of conception. The specimen consists of multiple fragments of hemorrhagic soft tissue that in aggregate measure 6 x 6 x 2 cm. tissue is not identified. The specimen is totally submitted in ten cassettes. / SUMA:corrine 10/04/20 TC:3 CPT:
--- NOTE | 2020-10-01 15:27 | PCM.OPRPT ---
Problem List (1) Missed Status: Acute Report of Operation Date of Procedure: 10/01/20 Pre-Operative Diagnosis: missed ab Post-Operative Diagnosis: same Surgery/Procedure Performed:: suction d and c Description of Surgical Findings:: 8 week size uterus Type of Anesthesia:: MAC Special Medications: none Specimen's removed: poc Drains: none Estimated Blood Loss (mL): 50 Fluids Replaced: crystalloid Description of Procedure: Patient was taken to the operating room and placed under MAC local anesthesia. She was prepped and draped in the normal sterile fashion the dorsal lithotomy position. Bladder was drained of clear urine and anterior lip of the cervix was grasped and the uterus sounded to10 cm Cervix was progressively dilated to allow passage of a10 mm suction curette. Progressive passes were made removing the retained products of conception without complication. Sharp curettage confirmed complete removal of the retained products. All instruments were removed from the vagina and excellent hemostasis was noted and the patient was taken to recovery in stable condition. Grafts/Implants Used: none - Complications none - Admit VTE Documentation VTE Present on Admission: No VTE Mechan Device Prophylaxis: SCD's Multi Select Codes - Urinary/Genital Urinary/Genital CPT Codes: 17764 Surg Trtmt missed Ab 1TM
--- NOTE | 2020-10-01 15:30 | DCINST_ITS ---
Discharge Diet: No Restrictions Discharge Activity: Return to Normal Activity, May Shower, May Take a Tub Bath Allergies/Adverse Reactions: Allergies nitrofurantoin [From Macrobid] Allergy (Verified 10/01/20 13:39) Itching Medications to take at Discharge ibuprofen 800 mg tablet 800 mg PO Q8H PRN #30 tab 09/29/20 oxycodone-acetaminophen 5 mg-325 mg tablet 1 tab PO Q6H PRN #8 tab 09/29/20 Naproxen [Naprosyn] 250 - 500 mg PO Q8H PRN PRN #30 tab 10/01/20 The following prescriptions were given: Naproxen [Naprosyn] 250 - 500 mg PO Q8H PRN PRN #30 tab PRN Reason: MILD PAIN Transmission Status: Pending to [facility] Primary Care Physician: Constantine Slater DO [Primary Care Provider] - Test Results: Test results from this visit will be discussed in further detail at your follow- up appointment, if applicable. Please Follow Up With: Sharmin Moore MD - [phone]
[2020-10-01] MEDS: Lidocaine 1% (20 ml mdv) 20 ML Vial (15:39)
[2020-10-01] MEDS: HYDROcodone Bitartrate/Apap 5/325 Tablet PO (16:39)
== END 2020-10-01 17:15 | disposition home or self-care (01) ==
LOC: SDC 12:48 → AC 12:49
PROVIDERS: PCP Student in an Organized Health Care Education/Training Program; Referring Provider Obstetrics & Gynecology; Visit Provider Obstetrics & Gynecology
PROC: (CPT 59820; principal; 2020-10-01 14:45)
DX: O02.1 Missed abortion (principal)
CPT/HCPCS: 59820; 85025; 86850; 86900; 86901; 87426; 88305; J7120; J2405

== ENCOUNTER → 2020-12-31 13:47 | Outpatient (CLI) | payer MEDICAID, SELFPAY ==
[2020-10-26 15:49] VITALS: BMI 40.2
[2020-12-31 14:23] LABS: hCG Titer Quant., Serum 348 mIU/mL (1-3)
== END ==
PROVIDERS: PCP Student in an Organized Health Care Education/Training Program; Referring Provider Obstetrics & Gynecology; Visit Provider Obstetrics & Gynecology
DX: Z32.01 Encounter for pregnancy test, result positive (principal)
CPT/HCPCS: 36415; 84702

== ENCOUNTER → 2021-01-02 14:01 | Outpatient (CLI) | payer MEDICAID, SELFPAY ==
[2020-10-26 15:49] VITALS: BMI 40.2
[2021-01-02 15:15] LABS: hCG Titer Quant., Serum 1127 mIU/mL (1-3)
== END ==
PROVIDERS: PCP Student in an Organized Health Care Education/Training Program; Visit Provider Obstetrics & Gynecology
DX: Z32.01 Encounter for pregnancy test, result positive (principal)
CPT/HCPCS: 36415; 84702

== ENCOUNTER → 2021-01-31 16:39 | Outpatient (CLI) | payer MEDICAID, SELFPAY ==
[2021-01-31 12:08] VITALS: BMI 40.8
[2021-01-31 17:31] LABS: Amphetamine Urine VISTA NEGATIVE (<1000 ng/mL); Barbiturate Urine VISTA NEGATIVE (< 200 ng/mL); Benzodiazepine Urine VISTA NEGATIVE (< 200 ng/mL); Cocaine Urine VISTA NEGATIVE (< 300 ng/mL); Ecstacy Urine VISTA NEGATIVE (< 500 ng/mL); Methadone Urine VISTA NEGATIVE (< 300 ng/mL); PCP Urine VISTA NEGATIVE (< 25 ng/mL); THC Urine VISTA NEGATIVE (< 50 ng/mL); Vista UDS pH Range 6
[2021-02-03 03:07] LABS: Chlamydia By Nucleic Acid AMP Negative (Negative)
[2021-02-03 09:01] LABS: Gonococcus By Nucleic Acid AMP Negative (Negative)
[2021-02-04 16:20] LABS: HPV Reflexed? NOT INDICATED
== END ==
PROVIDERS: PCP Student in an Organized Health Care Education/Training Program; Visit Provider Obstetrics & Gynecology
DX: O09.90 Supervision of high risk pregnancy, unspecified, unspecified trimester (principal); Z12.4 Encounter for screening for malignant neoplasm of cervix; Z3A.00 Weeks of gestation of pregnancy not specified
CPT/HCPCS: 80307; 87086; 87088; 87491; 87591; 88175; G0145

== ENCOUNTER → 2021-02-16 13:52 | Outpatient (CLI) | payer MEDICAID, SELFPAY ==
[2021-01-31 12:08] VITALS: BMI 40.8
[2021-02-16 14:22] LABS: Absolute Lymphocyte Count 1.27 X10^3/uL (0.83-4.51); Absolute Neutrophil Count 6.3 X10^3/uL (2.0-7.7); Basophil# 0.02 X10^3/uL; Basophil% 0.2 % (0-1); Eosinophil# 0.05 X10^3/uL; Eosinophils% 0.6 % (0-5); Hematocrit 34.8 % (37-47); Hemoglobin 11.4 g/dL (12.0-15.0); Lymphocyte # 1.27 X10^3/ul (0.83-4.51); Lymphocyte % 15.5 % (19-41); Mean Corp Hgb Conc 32.8 g/dL (32-36); Mean Corpuscular Hgb 26.1 pg (27.0-32.0); Mean Corpuscular Volume 79.8 fL (81-99); Mean Platelet Vol. 10.6 fl (6.2-12.0); Monocyte# 0.51 X10^3/uL; Monocyte% 6.2 % (0-10); NRBC Flagged by Analyzer 0 % (0-5); Neutrophil # 6.32 X10^3/uL (2.7-7.7); Neutrophil % 77.1 % (47-70); Platelet Count 214 K/mm3 (150-450); RBC Distribution Width CV 13.9 % (11.6-14.6); Red Blood Count 4.36 M/mm3 (4.2-5.4); White Blood Count 8.2 K/mm3 (4.4-11.0)
[2021-02-16 14:38] LABS: ALB/GLOB Ratio 0.9 RATIO (0.9-2.4); AST(SGOT) 8 U/L (15-37); Alanine Aminotransfer ALT/SGPT 13 U/L (13-56); Albumin, Serum 3.6 g/dL (3.2-5.0); Alkaline Phosphatase 70 U/L (45-117); Anion Gap 5 (5-15); BUN 7 mg/dL (7-18); BUN/Creat Ratio 9.6 RATIO (10-20); Calcium,Total 8.7 mg/dL (8.5-10.1); Chloride 104 mmol/L (98-107); Creatinine, Serum 0.73 mg/dL (0.55-1.02); EST Glomerular Filtration Rate 104 mL/min (>60); Est Glom Filt Rate - Afr Amer 126 mL/min (>60); Globulin 4.2 g/dL (2.2-4.2); Glucose 146 mg/dL (74-106); Glucose Challenge Gest 1H 50g 146 mg/dL (70-140); Potassium 3.2 mmol/L (3.5-5.1); Protein, Total 7.8 g/dL (6.4-8.2); Sodium Level 133 mmol/L (136-145)
[2021-02-16 15:11] LABS: NATERA MAILED SPECIMEN
[2021-02-16 16:01] LABS: HIV - WCH Non-Reactive (Nonreactive); Hepatitis B Surface Antigen Non-Reactive (Nonreactive); Hepatitis C Antibody Non-Reactive (Nonreactive); Rubella IgG Reactive (Nonreactive)
== END ==
PROVIDERS: PCP Student in an Organized Health Care Education/Training Program; Visit Provider Obstetrics & Gynecology
DX: O09.90 Supervision of high risk pregnancy, unspecified, unspecified trimester (principal); O09.299 Supervision of pregnancy with other poor reproductive or obstetric history, unspecified trimester; O99.210 Obesity complicating pregnancy, unspecified trimester; O26.899 Other specified pregnancy related conditions, unspecified trimester; Z67.91 Unspecified blood type, Rh negative; Z3A.00 Weeks of gestation of pregnancy not specified
CPT/HCPCS: 36415; 80053; 82950; 85025; 86703; 86762; 86803; 86850; 86900; 86901; 87340

== ENCOUNTER → 2021-02-25 14:02 | Outpatient (CLI) | payer MEDICAID, SELFPAY ==
[2021-01-31 12:08] VITALS: BMI 40.8
[2021-02-25 15:13] LABS: NATERA MAILED SPECIMEN
== END ==
PROVIDERS: PCP Student in an Organized Health Care Education/Training Program; Referring Provider Obstetrics & Gynecology; Visit Provider Obstetrics & Gynecology
DX: Z34.82 Encounter for supervision of other normal pregnancy, second trimester (principal)
CPT/HCPCS: 36415

== ENCOUNTER → 2021-03-16 07:00 | Outpatient (CLI) | payer MEDICAID, SELFPAY ==
[2021-02-28 13:54] VITALS: BMI 40.4
[2021-03-16 08:01] LABS: Glucose GTT-Gestation. Fasting 94 mg/dL (<105)
[2021-03-16 08:51] LABS: Glucose GTT-Gestational 1 Hr 150 mg/dL (<190)
[2021-03-16 10:37] LABS: Glucose GTT-Gestational 2 Hr 99 mg/dL (<165)
[2021-03-16 11:22] LABS: Glucose GTT-Gestational 3 Hr 78 L (<145)
== END ==
PROVIDERS: PCP Student in an Organized Health Care Education/Training Program; Referring Provider Obstetrics & Gynecology; Visit Provider Obstetrics & Gynecology
DX: O99.810 Abnormal glucose complicating pregnancy (principal); Z3A.00 Weeks of gestation of pregnancy not specified
CPT/HCPCS: 36415; 82951; 82952

== ENCOUNTER 2021-04-03 16:37 | Emergency (ER) | payer MEDICAID, SELFPAY ==
[2021-03-28 13:23] VITALS: BMI 40.4
[2021-04-03 16:38] VITALS: BP 151/99; PULSE 91; RESP 18; TEMP 36.9; O2SAT 96; BMI 42.2
--- NOTE | 2021-04-03 16:56 | US_ITS ---
EXAM: US , LIMITED : 1995 CLINICAL INDICATION: MILD BLEEDING OFF AND ON TECHNIQUE: Real-time limited ultrasound of the maternal uterus with image documentation. This report was created using [employer] report generation technology. COMPARISON: None. FINDINGS: JEWEL: JEWEL is 09/09/2021. Gestational age is 17 weeks 2 days. BPD: Biparietal diameter is 3.9 cm age 17 weeks 6 days. HC: Head circumference 14.2 cm age 17 weeks 6 days. AC: Abdominal circumference was 12.1 cm age 17 weeks 5 days. FL: Femur length is 2.4 cm age 17 weeks 1 day. POSITION: The fetus is in the breech position. HEART RATE: heart rate of 164 bpm. PLACENTA: The placenta is anterior. CERVIX: The cervix measures 3.1 cm. FREE FLUID: The largest fluid pocket is 5.7 x 3.0 cm. US/OB Limited With Biometrics IMPRESSION: Intrauterine gestation with an average ultrasound age is 17 weeks 4 days and ultrasound estimated due date of 09/07/2021. heart rate of 164 bpm. at 1918 Reported and signed by: Koby Price MD Electronically Signed: Koby Price MD at 19:17 EDT Tel , Service support ,
[2021-04-03 17:21] LABS: Absolute Lymphocyte Count 1.56 X10^3/uL (0.83-4.51); Absolute Neutrophil Count 7.2 X10^3/uL (2.0-7.7); Basophil# 0.03 X10^3/uL; Basophil% 0.3 % (0-1); Eosinophil# 0.13 X10^3/uL; Eosinophils% 1.3 % (0-5); Hematocrit 32.8 % (37-47); Hemoglobin 10.8 g/dL (12.0-15.0); Lymphocyte # 1.56 X10^3/ul (0.83-4.51); Lymphocyte % 16.1 % (19-41); Mean Corp Hgb Conc 32.9 g/dL (32-36); Mean Corpuscular Hgb 26.5 pg (27.0-32.0); Mean Corpuscular Volume 80.4 fL (81-99); Mean Platelet Vol. 10.4 fl (6.2-12.0); Monocyte# 0.73 X10^3/uL; Monocyte% 7.5 % (0-10); NRBC Flagged by Analyzer 0 % (0-5); Neutrophil # 7.17 X10^3/uL (2.7-7.7); Platelet Count 198 K/mm3 (150-450); RBC Distribution Width CV 15.2 % (11.6-14.6); Red Blood Count 4.08 M/mm3 (4.2-5.4); White Blood Count 9.7 K/mm3 (4.4-11.0)
[2021-04-03 17:53] LABS: hCG Titer Quant., Serum 18246 mIU/mL (1-3)
[2021-04-03 18:39] VITALS: BP 137/86; PULSE 72; RESP 16; O2SAT 100
--- NOTE | 2021-04-03 19:31 | EDS_ITS ---
HPI HPI - Female History of Present Illness Chief Complaint: Vag Bld, Preg Narrative Narrative: 26-year-old female who is currently 17 weeks presenting for vaginal spotting. She states the was seen in [place] yesterday and had a bedside ultrasound performed by the ER physician which showed good heart tones. She was concerned because they did not do a formal ultrasound. She was given RhoGam because she is O-. Patient called her INSURANCE INVESTIGATOR today who referred her to [facility] to have a transvaginal ultrasound done formally the patient is still spotting. She does not have any other complaints. PFSH PFSH Medical History Missed Home Medications vitamin #56-iron 35 mg and 5 mg-folic acid 1 mg-dha capsule 1 cap PO QHS #30 cap 10/26/20 [Rx Last Taken Unknown] promethazine 12.5 mg tablet 12.5 mg PO Q6H PRN #60 tab 01/17/21 [Rx Last Taken Unknown] Allergy/AdvReac Type Severity Reaction Status Date / Time nitrofurantoin Allergy Itching Verified 04/03/21 16:38 [From Macrobid] Family History Mother Diabetes Hypertension Brother Diabetes Grandfather Diabetes Father CVA (cerebral vascular accident) Hypertension Grandmother Breast cancer Lung cancer Surgical History H/O dilation and curettage History of ankle surgery S/P right knee surgery Social History Smoking Status: Never smoker alcohol intake: never substance use type: does not use caffeine: Yes what type of physical activity do you participate in: walking seatbelt use: always do you feel safe at home: Yes additional social history: Boyfriend-[place] RIKI LYN ED Constitutional Constitutional ED: Denies chills, fever(s) or sweats Eyes Eyes: Denies blurry vision or change in vision ENT ENT ED: Denies ear pain, rhinorrhea or sore throat Cardiovascular Cardiovascular: Denies chest pain, palpitations or racing heartbeat Respiratory/Chest Respiratory/Chest: Denies cough, dyspnea or sputum Gastrointestinal Gastrointestinal: Denies abdominal pain, constipation, diarrhea or vomiting Genitourinary Genitourinary ED: Reports other Details: Vaginal spotting ; Denies dysuria, hematuria or urinary frequency Musculoskeletal Musculoskeletal: Denies arthralgias, myalgias or neck pain Integumentary Denies abscess, Abrasions or rash Neurologic Neurologic: Denies headache(s), paresthesias or weakness Psychiatric Psychiatric: Denies anxiety, depression, suicidal ideation or suicidal thoughts Endocrine Endocrinology: Denies polydipsia or polyuria EXAM Physical Exam Const Vital Signs: 04/03/21 16:38 04/03/21 18:39 Temperature 98.5 F Temperature Source Temporal Pulse Rate 91 72 Respiratory Rate 18 16 Blood Pressure 151/99 H 137/86 H Blood Pressure Mean 116 103 Pulse Ox 96 100 Oxygen Delivery Method Room Air Room Air Positive well nourished General Appearance ED: NAD; Negative for pallor HEENT Reports normocephalic, head/scalp atraumatic and moist mucous membranes Negative for trauma Eyes PERRL and EOMs intact bilaterally Resp normal respiratory effort and clear to auscultation bilaterally Auscultation: Negative for rales, rhonchi or wheezes Cardio regular rate and regular rhythm GI normal to inspection, nondistended, normoactive bowel sounds GI Narrative: Gravid Palpation: soft Narrative: Deferred Extremity normal to inspection General Extremety ED: Negative for edema or tenderness General Extremity: Negative for edema Neuro oriented x3 and CN's II-XII intact bilaterally Sensorium / Orientation: alert Motor Exam: strength 5/5 throughout Psych mental status grossly normal Attitude: No agitated Skin no rashes or lesions noted and no wounds General Skin Exam: Negative for jaundice or pallor MDM MDM MDM Narrative Medical decision making narrative: Patient presenting for transvaginal ultrasound. This was performed and shows intrauterine gestation at 17 weeks 4 days. heart rate is 164. CBC shows hemoglobin of 10.8 which is higher than her previous. Platelets are normal. hCG is 18,246. Reviewed urinalysis from [place] yesterday which was negative. Discussed with Dr. Obrien. She felt that the patient was still having spotting that she should keep her Sunday appointment otherwise she could see her in the future. Patient amenable to this plan. Impression: 1. Threatened miscarriage Lab Data Labs: Laboratory Results - last 24 hr 04/03/21 04/03/21 17:15 17:15 WBC 9.7 RBC 4.08 L Hgb 10.8 L Hct 32.8 L MCV 80.4 L MCH 26.5 L MCHC 32.9 RDW Std Deviation 44.0 H RDW Coeff of Taco 15.2 H Plt Count 198 MPV 10.4 Immature Gran % (Auto) 0.800 Neut % (Auto) 74.0 H Lymph % (Auto) 16.1 L [place] % (Auto) 7.5 Eos % (Auto) 1.3 Baso % (Auto) 0.3 Absolute Neuts (auto) 7.2 Absolute Lymphs (auto) 1.56 Nucleated RBC % 0 HCG, Quant 81347 H Radiography Diagnostic Testing: Radiology Impression Obstetrics Ultrasound 04/03/21 16:56 IMPRESSION: Intrauterine gestation with an average ultrasound age is 17 weeks 4 days and ultrasound estimated due date of 09/07/2021. heart rate of 164 bpm. at 1918 Reported and signed by: Koby Price MD Electronically Signed: Koby Price MD at 19:17 EDT Tel , Service support , Discharge Plan Triage Chief Complaint: Vag Bld, Preg ED Provider: Akash Blas Dx/Rx/DC Orders Instructions: ED Possible Miscarriage ... Prescriptions: No Action vitamin #56-iron 35 mg and 5 mg-folic acid 1 mg-dha capsule 35 mg iron-5 mg iron-1 mg capsule 1 cap PO QHS Qty: 30 RF: 12 promethazine 12.5 mg tablet 12.5 mg PO Q6H PRN (Reason: nausea and vomiting) Qty: 60 RF: 2 Primary Care Provider: Constantine Slater Referrals: Constantine Slater DO [Primary Care Provider] - Sharmin Moore MD [STAFF PHYSICIAN] - As Needed Disposition Disposition: Home, self care Discharge Date/Time: 04/03/21 19:32
== END 2021-04-03 19:32 | disposition home or self-care (01) ==
PROVIDERS: Emergency Provider Student in an Organized Health Care Education/Training Program; PCP Student in an Organized Health Care Education/Training Program
DX: O02.1 Missed abortion (principal); Z3A.17 17 weeks gestation of pregnancy
CPT/HCPCS: 76816; 84702; 85025; 99282

== ENCOUNTER → 2021-04-06 16:45 | Outpatient (CLI) | payer MEDICAID, SELFPAY ==
[2021-04-06 11:34] VITALS: BMI 42.2
== END ==
PROVIDERS: PCP Student in an Organized Health Care Education/Training Program; Visit Provider Obstetrics & Gynecology
DX: O26.899 Other specified pregnancy related conditions, unspecified trimester (principal); N89.8 Other specified noninflammatory disorders of vagina; Z3A.00 Weeks of gestation of pregnancy not specified
CPT/HCPCS: 87070; 87205

== ENCOUNTER 2021-05-31 19:54 | Outpatient (CLI) | payer MEDICAID, SELFPAY ==
[2021-05-26 13:32] VITALS: BMI 42.2
[2021-05-31 20:16] VITALS: BP 135/75; PULSE 94
[2021-05-31 20:18] VITALS: BMI 41.7
[2021-05-31 20:26] VITALS: BP 131/71; PULSE 90
[2021-05-31 20:37] VITALS: BP 124/70; PULSE 96
[2021-05-31] MEDS: Acetaminophen/Butalbital/Caffe 1 Tablet 2 TABLET PO (20:47)
--- NOTE | 2021-06-01 03:49 | OB.TRI.HP_ITS ---
HPI - General HPI Narrative JOE MARIEE, is a 26 F who presents intermittent daily headache for the last several days. Blood pressures are within normal limits. Patient denies any visual changes. She took some Tylenol and caffeine with minimal improvement. She feels good movement denies any vaginal bleeding or loss of fluid Maternal Data Information JEWEL Calculator Estimated Delivery Date Method Current WG Current Estimate 09/07/21 LMP (Certain) 26w 0d PFSH PFSH Medical History Missed Home Medications vitamin #56-iron 35 mg and 5 mg-folic acid 1 mg-dha capsule 1 cap PO QHS #30 cap 10/26/20 [Rx Last Taken 1 Day Ago ~05/30/21] promethazine 12.5 mg tablet 12.5 mg PO Q6H PRN #60 tab 01/17/21 [Rx Last Taken Unknown] Allergy/AdvReac Type Severity Reaction Status Date / Time nitrofurantoin Allergy Itching Verified 04/25/21 13:31 [From Macrobid] Family History Mother Diabetes Hypertension Brother Diabetes Grandfather Diabetes Father CVA (cerebral vascular accident) Hypertension Grandmother Breast cancer Lung cancer Surgical History H/O dilation and curettage History of ankle surgery S/P right knee surgery Social History Smoking Status: Never smoker alcohol intake: never substance use type: does not use caffeine: Yes what type of physical activity do you participate in: walking seatbelt use: always do you feel safe at home: Yes additional social history: Boyfriend-[place] History 3 Elective abortions Hx Para 1 Spontaneous abortions 1 Hx # Term Pregnancies Ectopic pregnancies Hx # Pregnancies Multiple births # of living children 1 Past Pregnancies Del. Date Name GA/Weeks Outcome Route Bth Weight Gen Labor Lgth Anesthesia Del Locatn Provider FOB 07/30/18 [facility] 41 live - full term 9lbs 1oz Male 36 hours epidural [facility] Dr. Yunior Callahan Delivery Date: 07/30/18 Pre-eclampsia during labor, HR decels, episiotomy Flakita,Marsha Visit Details Expected Delivery Route/Plan Labor Preferences- CB/BF classes: [] labor support person: [] labor intervention preferences: [] pain management options preferred: [] cut cord/dad catch: [] : [] PP control planned: [] discussed possible routes of delivery and associated risks: [] special requests: [] Plans flu vaccine: [] tdap vaccine: [] rhogam: [] LARC form signed: [] Problem list reviewed and updated with the most current plan of care details and appropriate orders placed. Relevant counseling for the gestational age provided. Continue routine care and follow up unless otherwise noted in visit notes/problem list details OB Flowsheet Initial Weight: 245 lb Date -?-?-?-?-?-?-?-?-?-?-?-?- EGA Weight BP Urine Prot -?-?-?-?-?-?-?-?-?-?-?-?- Glucose FHR FuHt Pres Dilation -?-?-?-?-?-?-?-?-?-?-?-?- Effaced St Visit Note 01/31/21 -?-?-?-?-?-?-?-?-?-?-?-?- 8w 5d 245 lb 4 oz (+4 oz) 138/78 -?-?-?-?-?-?-?-?-?-?-?-?- 170 -?-?-?-?-?-?-?-?-?-?-?-?- GP - CRL consist ent with LMP. 02/28/21 -?-?-?-?-?-?-?-?-?-?-?-?- 12w 5d 243 lb (-2 lb) 120/76 Negative -?-?-?-?-?-?-?-?-?-?-?-?- Negative -?-?-?-?-?-?-?-?-?-?-?-?- SM- 03/28/21 -?-?-?-?-?-?-?-?-?-?-?-?- 16w 5d 246 lb (+16 oz) 136/68 Trace -?-?-?-?-?-?-?-?-?-?-?-?- Negative 156 -?-?-?-?-?-?-?-?-?-?-?-?- MH-No VB, LOF. U S MFM ordered. 04/06/21 -?-?-?-?-?-?-?-?-?-?-?-?- 18w 0d 245 lb 6 oz (+6 oz) 118/72 Negative -?-?-?-?-?-?-?-?-?-?-?-?- Negative 140 0 -?-?-?-?-?-?-?-?-?-?-?-?- GP - work in for spotting. No active bleeding. No TOD on US. Cervix closed. Vaginal culture collected. 04/25/21 -?-?-?-?-?-?-?-?-?-?-?-?- 20w 5d 249 lb (+4 lb) 130/68 Negative -?-?-?-?-?-?-?-?-?-?-?-?- Negative 155 -?-?-?-?-?-?-?-?-?-?-?-?- GP - no LOF, VB, ctx. Not yet feeling consistent movement. Considering Sherri for name but not sure of spelling. Anatomy scan on Sunday. 05/26/21 -?-?-?-?-?-?-?-?-?-?-?-?- 25w 1d 251 lb (+6 lb) 138/74 -?-?-?-?-?-?-?-?-?-?-?-?- 145 25 -?-?-?-?-?-?-?-?-?-?-?-?- SM- no vb lof go od fm n oregular ctx 05/31/21 -?-?-?-?-?-?-?-?-?-?-?-?- 25w 6d 250 lb 10.649 oz (+5 lb 10.649 oz) 135/75 131/71 124/70 -?-?-?-?-?-?-?-?-?-?-?-?- -?--?-?-?-?-?-?-?-?-?-?-?- Physical Exam Const alert, oriented x3 and no apparent distress HEENT Head and Scalp: normocephalic and atraumatic Eyes EOMs intact bilaterally Neck full ROM and no lymphadenopathy Chest inspection of chest normal Resp normal respiratory effort GI GI Narrative: gravid, abdomen nontender, AGA Neuro no focal motor deficits Motor Exam: clonus absent NST FHR Rate Baby A Baseline: 150 Variability:: Moderate Accelerations:: 10 x 10 Decelerations:: None NST Reactive:: Yes FHR Category:: Category I Uterine Activity:: no regular Assessment & Plan (1) Headache in : COMMENT: Fioricet x1 given. If persistent consider Phenergan or Reglan PLAN: Problem list updated and treatment plans were reviewed with the patient and relevant educational handouts given. See problem list details for specific plan information. Charges/Coding Procedures Urinary/Genital [id number]: 07566-07 non-stress test Interp Multi Select Codes Visit Charges Office Visit/Consults: 84166 OV L3 Est
== END 2021-05-31 21:50 | disposition home or self-care (01) ==
LOC: WPOUT 20:04 → WP 20:05
PROVIDERS: PCP Student in an Organized Health Care Education/Training Program; Referring Provider Obstetrics & Gynecology; Visit Provider Obstetrics & Gynecology
DX: O26.892 Other specified pregnancy related conditions, second trimester (principal); R51.9 Headache, unspecified; Z3A.26 26 weeks gestation of pregnancy; Z87.59 Personal history of other complications of pregnancy, childbirth and the puerperium
CPT/HCPCS: 59025; 59050; 99218; G0378

== ENCOUNTER → 2021-06-15 13:19 | Outpatient (CLI) | payer MEDICAID, SELFPAY ==
[2021-05-31 20:18] VITALS: BMI 41.7
[2021-06-15 13:41] LABS: Absolute Lymphocyte Count 1.45 X10^3/uL (0.83-4.51); Absolute Neutrophil Count 7.6 X10^3/uL (2.0-7.7); Basophil# 0.03 X10^3/uL; Basophil% 0.3 % (0-1); Eosinophil# 0.07 X10^3/uL; Eosinophils% 0.7 % (0-5); Hematocrit 33.5 % (37-47); Lymphocyte # 1.45 X10^3/ul (0.83-4.51); Lymphocyte % 14.5 % (19-41); Mean Corp Hgb Conc 32.8 g/dL (32-36); Mean Corpuscular Hgb 28.1 pg (27.0-32.0); Mean Corpuscular Volume 85.7 fL (81-99); Monocyte# 0.76 X10^3/uL; Monocyte% 7.6 % (0-10); NRBC Flagged by Analyzer 0 % (0-5); Neutrophil # 7.61 X10^3/uL (2.7-7.7); Neutrophil % 75.8 % (47-70); Platelet Count 186 K/mm3 (150-450); RBC Distribution Width CV 16.1 % (11.6-14.6); RBC Distribution Width SD 49.8 fl (35.1-43.9); Red Blood Count 3.91 M/mm3 (4.2-5.4)
[2021-06-15 13:52] LABS: Glucose Challenge Gest 1H 50g 142 mg/dL (70-140)
[2021-06-16 10:16] LABS: Syphilis Antibodies Non-reactive
== END ==
PROVIDERS: PCP Student in an Organized Health Care Education/Training Program; Referring Provider Obstetrics & Gynecology; Visit Provider Obstetrics & Gynecology
DX: Z3A.25 25 weeks gestation of pregnancy (principal)
CPT/HCPCS: 36415; 82950; 85025; 86780; 86850; 86900; 86901

== ENCOUNTER → 2021-06-27 10:12 | Outpatient (CLI) | payer MEDICAID, SELFPAY | PROVIDERS: PCP Student in an Organized Health Care Education/Training Program; Referring Provider Obstetrics & Gynecology; Visit Provider Obstetrics & Gynecology | DX: O26.891 Other specified pregnancy related conditions, first trimester (principal); Z67.91 Unspecified blood type, Rh negative; Z3A.00 Weeks of gestation of pregnancy not specified | CPT/HCPCS: 36415; 86850; 86900; 86901 ==

== ENCOUNTER → 2021-07-25 12:38 | Outpatient (CLI) | payer MEDICAID, SELFPAY ==
--- NOTE | 2021-07-25 12:40 | US_ITS ---
STUDY: SECOND AND THIRD TRIMESTER OBSTETRICAL ULTRASOUND - LIMITED REASON FOR EXAM: Female, 26 years old. Growth. LMP: Provided JEWEL of 09/09/2021 PRIOR ULTRASOUND: 04/03/2021 TECHNIQUE: Transabdominal TECHNICAL QUALITY: Adequate. FINDINGS: There is a single intrauterine fetus. The fetus is in a cephalic presentation. There is demonstrated cardiac activity with a heart rate of 152 bpm. There is a normal amniotic fluid volume. The largest amniotic fluid pocket measures 7.28 cm cm. The amniotic fluid index (RACHID) is 22.05 cm cm. The placenta is anterior in location and is not low lying. There are Grade 2 placental changes. The cervix measures 3.81 cm cm in length. BIOMETRY: BPD: 8.37 cm: 33 weeks, 4 days HC: 30.53 cm: 33 weeks, 6 days AC: 31.03 cm: 24 weeks, 6 days FL: 6.64 cm: 34 weeks, 1 days Age by LMP: 33 weeks, 3 days. JWEEL by LMP: 09/09/2021. age by prior US: 33 weeks, 5 days. JEWEL by prior US: 09/07/2021. age by current US: 34 weeks, 0 days. JEWEL by current US: 09/05/2021. Estimated weight: 2482 grams, +/- 372 grams, 71 percentile. Gender: Indeterminant US/OB Limited With Biometrics IMPRESSION: 1. Live single intrauterine of 34 weeks, 0 days. JEWEL is 09/05/2021. There is adequate interval growth since the prior ultrasound. 2. EFW of 2482 g. 3. RACHID of 20.05 cm. 4. Anterior grade 2 placenta. 5. Vertex presentation. Electronically Signed: Felix Turner DO at 16:40 EDT Tel [phone], Service support ,
== END ==
PROVIDERS: PCP Student in an Organized Health Care Education/Training Program; Referring Provider Obstetrics & Gynecology; Visit Provider Obstetrics & Gynecology
DX: O09.90 Supervision of high risk pregnancy, unspecified, unspecified trimester (principal); Z3A.00 Weeks of gestation of pregnancy not specified
CPT/HCPCS: 76816

== ENCOUNTER → 2021-08-12 14:16 | Outpatient (CLI) | payer MEDICAID, SELFPAY | PROVIDERS: PCP Student in an Organized Health Care Education/Training Program; Referring Provider Obstetrics & Gynecology; Visit Provider Obstetrics & Gynecology | DX: O09.90 Supervision of high risk pregnancy, unspecified, unspecified trimester (principal); Z3A.00 Weeks of gestation of pregnancy not specified | CPT/HCPCS: 87081 ==

== ENCOUNTER → 2021-09-06 12:36 | Outpatient (CLI) | payer MEDICAID, SELFPAY ==
--- NOTE | 2021-09-06 12:38 | US_ITS ---
STUDY: SECOND AND THIRD TRIMESTER OBSTETRICAL ULTRASOUND REASON FOR EXAM: Female, 26 years old growth LMP: 12/01/2020. TECHNIQUE: Transabdominal TECHNICAL QUALITY: Adequate. PRIOR ULTRASOUND: Comparison is made with prior study 07/25/2021. FINDINGS: There is a single intrauterine fetus. The fetus is in a cephalic presentation. There is demonstrated cardiac activity with a heart rate of 150 bpm. There is a normal amniotic fluid volume. The largest amniotic fluid pocket measures 5.0 cm. The amniotic fluid index (RACHID) is 13.0 cm. The placenta is anterior in location and is not low lying. There are Grade 3 placental changes. The cervix was not visualized due to head position. The adnexal regions are not visualized. BIOMETRY: BPD: 9.5 cm: 38 weeks, 6 days HC: 33.9 cm: 38 weeks, 6 days AC: 38.9 cm: Too large for assessment. FL: 7.51 cm: 38 weeks, 2 days CI: 82% FL/BPD: 79% FL/HC: FL/AC: 19% HC/AC: 0.87 age by current US: 38 weeks, 4 days. JEWEL by current US: 09/16/2021. Estimated weight: 4365 grams, +/- 655 grams, 95 %. age by prior US: 40 weeks, 1 days. JEWEL by prior US: 09/05/2021. Age by LMP: 39 weeks, 6 days. JEWEL by LMP: 09/07/2021. US/OB Limited With Biometrics IMPRESSION: Single live intrauterine gestation with a mean gestational age of 40 weeks and 1 day. The measurements obtained today following thin the normal expected range . Electronically Signed: Aureliano Sim MD at 14:37 EDT , Service support ,
== END ==
PROVIDERS: PCP Student in an Organized Health Care Education/Training Program; Referring Provider Obstetrics & Gynecology; Visit Provider Obstetrics & Gynecology
DX: O99.810 Abnormal glucose complicating pregnancy (principal); Z3A.00 Weeks of gestation of pregnancy not specified
CPT/HCPCS: 76816

== ENCOUNTER 2021-09-07 19:10 | Inpatient (IN) | payer MEDICAID, SELFPAY ==
[2021-09-07 19:30] VITALS: BMI 44.1
[2021-09-07 19:44] VITALS: PULSE 104; O2SAT 97
[2021-09-07 19:47] VITALS: TEMP 37.1
[2021-09-07 19:48] VITALS: BP 138/80; PULSE 117
[2021-09-07 20:27] VITALS: O2SAT 98
[2021-09-07 20:28] VITALS: BP 124/75; PULSE 111
[2021-09-07 20:29] VITALS: PULSE 101; TEMP 37.6
[2021-09-07] MEDS: Lactated Ringers 1,000 ML 50 ML IV (20:45)
[2021-09-07] MEDS: Acetaminophen 500 MG Tablet PO (21:00)
[2021-09-07 21:02] LABS: Absolute Lymphocyte Count 1.88 X10^3/uL (0.83-4.51); Absolute Neutrophil Count 8.6 X10^3/uL (2.0-7.7); Basophil# 0.04 X10^3/uL; Basophil% 0.3 % (0-1); Eosinophil# 0.11 X10^3/uL; Eosinophils% 0.9 % (0-5); Hematocrit 35.1 % (37-47); Hemoglobin 12.1 g/dL (12.0-15.0); Lymphocyte # 1.88 X10^3/ul (0.83-4.51); Lymphocyte % 15.9 % (19-41); Mean Corp Hgb Conc 34.5 g/dL (32-36); Mean Corpuscular Hgb 30.9 pg (27.0-32.0); Mean Corpuscular Volume 89.8 fL (81-99); Mean Platelet Vol. 10.3 fl (6.2-12.0); Monocyte# 0.94 X10^3/uL; NRBC Flagged by Analyzer 0 % (0-5); Neutrophil # 8.58 X10^3/uL (2.7-7.7); Neutrophil % 72.7 % (47-70); Platelet Count 233 K/mm3 (150-450); RBC Distribution Width CV 15.7 % (11.6-14.6); RBC Distribution Width SD 50.7 fl (35.1-43.9); Red Blood Count 3.91 M/mm3 (4.2-5.4); White Blood Count 11.8 K/mm3 (4.4-11.0)
[2021-09-07] MEDS: miSOPROStol 25 MCG TABLET VAGINAL (21:04)
[2021-09-08] VITALS (70 sets, daily range): BP systolic 101–153; BP diastolic 55–80; PULSE 74–187; RESP 16; TEMP 36.2–37.6; O2SAT 90–100
[2021-09-08] MEDS: miSOPROStol 25 MCG TABLET VAGINAL ×2 (01:08→05:20)
[2021-09-08] MEDS: fentaNYL 100 MCG/2 ML Ampul IV (07:39)
[2021-09-08] MEDS: 0.9% Saline Lock 10 ML Syringe IV ×3 (07:45→21:30)
[2021-09-08] MEDS: 0.9% Normal Saline Single 100 ML IV.SOLN. INTRA-UTER (07:49)
--- NOTE | 2021-09-08 08:04 | HP.PCM.OB_ITS ---
HPI - General General Date of Admission: 09/07/21 HPI Narrative JOE MARIEE, is a 26 @ 40 weeks who presents for induction of labor. She suffered with covid earlier in and was getting NSTs for obesity. The risks, benefits and alternatives to induction of labor were discussed and a consent form was signed. Maternal Data Information JEWEL Calculator Estimated Delivery Date Method Current WG Current Estimate 09/07/21 LMP (Certain) 40w 1d PFSH PFSH Medical History (Updated 09/07/21 @ 20:03 by [facility]) Headache Missed Pre-eclampsia Home Medications aspirin 81 mg tablet,delayed release 81 mg PO DAILY 08/26/21 [History Last Taken 09/06/21 20:00] vitamin #56-iron 35 mg and 5 mg-folic acid 1 mg-dha capsule 1 cap PO QHS 09/07/21 [History Last Taken 09/06/21 20:00] Allergy/AdvReac Type Severity Reaction Status Date / Time nitrofurantoin Allergy Itching Verified 09/06/21 09:56 [From Macrobid] Family History Mother Diabetes Hypertension Brother Diabetes Grandfather Diabetes Father CVA (cerebral vascular accident) Hypertension Grandmother Breast cancer Lung cancer Surgical History H/O dilation and curettage History of ankle surgery S/P right knee surgery Social History Smoking Status: Never smoker alcohol intake: never substance use type: does not use caffeine: Yes what type of physical activity do you participate in: walking seatbelt use: always do you feel safe at home: Yes additional social history: Boyfriend-[place] History 3 Elective abortions Hx Para 1 Spontaneous abortions 1 Hx # Term Pregnancies Ectopic pregnancies Hx # Pregnancies Multiple births # of living children 1 Past Pregnancies Del. Date Name GA/Weeks Outcome Route Bth Weight Infant Gen Labor Lgth Anesthesia Del Locatn Provider FOB 07/30/18 [facility] 41 live - full term 9lbs 1oz Male 36 hours epidural [facility] Dr. Yunior Callahan Delivery Date: 07/30/18 Pre-eclampsia during labor, HR decels, episiotomy Flakita,Marsha Visit Details Expected Delivery Route/Plan Labor Preferences- CB/BF classes:declined labor support person: labor intervention preferences:none pain management options preferred: epidural cut cord/dad catch: dad after 60 seconds : yes PP control planned: unsure discussed possible routes of delivery and associated risks: shoulder dystocia discussed special requests: none Plans flu vaccine: declined tdap vaccine: given rhogam: n/a LARC form signed: [] Problem list reviewed and updated with the most current plan of care details and appropriate orders placed. Relevant counseling for the gestational age provided. Continue routine care and follow up unless otherwise noted in visit notes/problem list details OB Flowsheet Initial Weight: 245 lb Date -?-?-?-?-?-?-?-?-?-?-?-?- EGA Weight BP Urine Prot -?-?-?-?-?-?-?-?-?-?-?-?- Glucose FHR FuHt Pres Dilation -?-?-?-?-?-?-?-?-?-?-?-?- Effaced St Visit Note 01/31/21 -?-?-?-?-?-?-?-?-?-?-?-?- 8w 5d 245 lb 4 oz (+4 oz) 138/78 -?-?-?-?-?-?-?-?-?-?-?-?- 170 -?-?-?-?-?-?-?-?-?-?-?-?- GP - CRL consist ent with LMP. 02/28/21 -?-?-?-?-?-?-?-?-?-?-?-?- 12w 5d 243 lb (-2 lb) 120/76 Negative -?-?-?-?-?-?-?-?-?-?-?-?- Negative -?-?-?-?-?-?-?-?-?-?-?-?- SM- 03/28/21 -?-?-?-?-?-?-?-?-?-?-?-?- 16w 5d 246 lb (+16 oz) 136/68 Trace -?-?-?-?-?-?-?-?-?-?-?-?- Negative 156 -?-?-?-?-?-?-?-?-?-?-?-?- MH-No VB, LOF. U S MFM ordered. 04/06/21 -?-?-?-?-?-?-?-?-?-?-?-?- 18w 0d 245 lb 6 oz (+6 oz) 118/72 Negative -?-?-?-?-?-?-?-?-?-?-?-?- Negative 140 0 -?-?-?-?-?-?-?-?-?-?-?-?- GP - work in for spotting. No active bleeding. No TOD on US. Cervix closed. Vaginal culture collected. 04/25/21 -?-?-?-?-?-?-?-?-?-?-?-?- 20w 5d 249 lb (+4 lb) 130/68 Negative -?-?-?-?-?-?-?-?-?-?-?-?- Negative 155 -?-?-?-?-?-?-?-?-?-?-?-?- GP - no LOF, VB, ctx. Not yet feeling consistent movement. Considering Sherri for name but not sure of spelling. Anatomy scan on Sunday. 05/26/21 -?-?-?-?-?-?-?-?-?-?-?-?- 25w 1d 251 lb (+6 lb) 138/74 -?-?-?-?-?-?--?-?-?-?-?-?- 145 25 -?-?-?-?-?-?-?-?-?-?-?-?- SM- no vb lof go od fm n oregular ctx 05/31/21 -?-?-?-?-?-?-?-?-?-?-?-?- 25w 6d 250 lb 10.649 oz (+5 lb 10.649 oz) 135/75 131/71 124/70 -?-?-?-?-?-?-?-?-?-?-?-?- -?-?-?-?-?-?-?-?-?-?-?-?- 06/15/21 -?-?-?-?-?-?-?-?-?-?-?-?- 28w 0d 248 lb 4 oz (+3 lb 4 oz) 128/64 Negative -?-?-?-?-?-?-?-?-?-?-?-?- Negative 140 28 -?-?-?-?-?-?-?--?-?-?-?-?- GP - no LOF, VB, DFM, ctx. Failed GCT - plan 1w home BGTs instead of 3h GCT. Needs rhogam 06/2706/27/21 -?-?-?-?-?-?-?-?-?-?-?-?- 29w 5d 251 lb (+6 lb) 118/70 Negative -?-?-?-?-?-?-?-?-?-?-?-?- Negative 160 31 -?-?-?-?-?-?-?-?-?-?-?-?- SM- no vb lof go od fm no regular ctx, borderline elvated fasting sugars, will repeat testing for 1 week. 07/14/21 -?-?-?-?-?-?-?-?-?-?-?-?- 32w 1d 251 lb 4 oz (+6 lb 4 oz) 134/78 Negative -?-?-?-?-?-?-?-?-?-?-?-?- Negative 150 32 -?-?-?-?-?-?-?-?-?-?-?-?- GP - no LOF, VB, DFM, regular ctx. Discussed NSTs for maternal obesity - NST reactive 07/22/21 -?-?-?-?-?-?-?-?-?-?-?-?- 33w 2d 253 lb 6 oz (+8 lb 6 oz) 130/68 Negative -?-?-?-?-?-?-?-?-?-?-?-?- Negative 135 -?-?-?-?-?-?-?-?-?-?-?-?- GP - nst only, r eactive 07/29/21 -?-?-?-?-?-?-?-?-?-?-?-?- 34w 2d 256 lb 4 oz (+11 lb 4 oz) 138/70 Negative -?-?-?-?-?-?-?-?-?-?-?-?- Negative 140 -?-?-?-?-?-?-?-?-?-?-?-?- GP - no LOF, VB, DFM, ctx. NST reactive. 08/05/21 -?-?-?-?-?--?-?-?-?-?-?-?- 35w 2d 254 lb 8 oz (+9 lb 8 oz) 138/74 Trace -?-?-?-?-?-?-?-?-?-?-?-?- Negative 140 -?-?-?-?-?-?-?-?-?-?-?-?- GP - NST only. R eactive 08/12/21 -?-?-?-?-?-?-?-?-?-?-?-?- 36w 2d 256 lb 6 oz (+11 lb 6 oz) 120/70 Negative -?-?-?-?-?-?-?-?-?-?-?-?- Negative 140 1 -?-?-?-?-?-?-?-?-?-?-?-?- GP - no LOF, VB, DFM, ctx. GBS done today 08/19/21 -?-?-?-?-?-?-?-?-?-?-?-?- 37w 2d 259 lb 4 oz (+14 lb 4 oz) 128/80 Negative -?-?-?-?-?-?-?-?-?-?-?-?- Negative 150 -?-?-?-?-?-?-?-?-?-?-?-?- GP - no LOF, VB, dFM, ctx. Denies complaints. NST reactive. 09/01/21 -?-?-?-?-?-?-?-?-?-?-?-?- 39w 1d 138/64 -?-?-?-?-?-?-?-?-?-?-?-?- 135 1 -?-?-?-?-?-?-?-?-?-?-?-?- 30 JV- no l of, vaginal bleeding or dec fm. COVID in preg with mild symptoms of loss of tast and smell. no fever or cough. [facility] recommends delivery between 39- 40 weeks. IOL set up for next sunday on her due date. NST reactive 09/06/21 -?-?-?-?-?-?-?-?-?-?-?-?- 39w 6d 263 lb 4 oz (+18 lb 4 oz) 126/80 Trace -?-?-?-?--?-?-?-?-?-?-?-?- Negative 141 40 -?-?-?-?-?-?-?-?-?-?-?-?- MH-Declined inte rnal exam. Good FM. No VB, LOF. NO reg CTX. Induction planned tomorrow at 1900. US today at 1330 09/07/21 -?-?-?-?-?-?-?-?-?-?-?-?- 40w 0d 265 lb (+20 lb) 138/80 124/75 135/80 134/77 120/66 -?-?-?-?-?-?-?-?-?-?-?-?- -?-?-?-?-?-?-?-?-?-?-?-?- ROS Constitutional Constitutional: Denies change in weight, fatigue, fever(s), headache(s), poor appetite or weakness Eyes Eyes: Denies blurry vision, change in vision, seeing flashes or spots in vision ENT HEENT: Denies dizziness, headache(s), loss taste/smell or sore throat Cardiovascular Cardiovascular: Denies chest pain, dizziness, dyspnea, irregular heart rhythm, leg edema, palpitations, rapid heart rate or vomiting Respiratory/Chest Respiratory/Chest: Denies chest tightness, cough, dyspnea or breast pain Gastrointestinal Gastrointestinal: Denies abdominal pain, anorexia, constipation, cramping, diarrhea, hemorrhoids, vomiting or weight changes Genitourinary Genitourinary: Denies dysuria, flank pain, genital lesions, genital pain, urinary frequency or urinary urgency Musculoskeletal Musculoskeletal: Denies back pain, difficulty walking, joint pain, limited range of motion, muscle cramps or numbness Integumentary Integumentary: Denies lesions or unusual bruising Neurologic Neurologic: Denies abnormal movements, abnormal speech, dizziness, numbness, seizure-like activity or syncope Psychiatric Psychiatric: Denies anxiety, behavioral changes, change in appetite, change in libido, cognitive impairment, confusion, depression, difficulty concentrating, hallucinations or suicidal thoughts Endocrine Endocrinology: Denies excessive sweating, polydipsia or polyuria Hematologic/Lymphatic Hematologic/Lymphatic: Denies easy bleeding, easy bruising or lymphadenopathy Allergic/Immunologic Allergic/Immunologic: Denies itchy eyes, lip swelling, seasonal rhinorrhea, rhinitis, throat swelling, tongue swelling, eczemia, wheezing or asthma Vital Signs Vital Signs Vital Signs: 09/07/21 19:44 09/07/21 19:47 09/07/21 19:48 Temperature 98.7 F Temperature Source Temporal Pulse Rate 104 H 117 H Blood Pressure 138/80 H BP Systolic 138 BP Diastolic 80 Pulse Ox 97 09/07/21 20:27 09/07/21 20:28 09/07/21 20:29 Temperature 99.6 F H Temperature Source Temporal Pulse Rate 111 H 101 H Blood Pressure 124/75 H BP Systolic 124 BP Diastolic 75 Pulse Ox 98 09/08/21 01:00 09/08/21 05:14 09/08/21 05:15 Temperature 99.2 F H 99.4 F H Temperature Source Temporal Pulse Rate 85 98 84 Blood Pressure 135/80 H 134/77 H BP Systolic 135 134 BP Diastolic 80 77 Pulse Ox 98 100 09/08/21 07:36 09/08/21 07:37 Temperature 97.7 F L Temperature Source Temporal Pulse Rate 88 89 Blood Pressure 120/66 BP Systolic 120 BP Diastolic 66 Pulse Ox 100 100 Weight Weight: 265 lb Body Mass Index (BMI) 44.1 Physical Exam Const alert, oriented x3, no apparent distress and healthy appearing General Appearance: cooperative; Negative for anxious HEENT normocephalic Face and Sinus: normal facial exam Eyes EOMs intact bilaterally and no scleral icterus General Eye: normal appearance of both eyes Neck full ROM and supple Lymph Lymphatic: no lymphadenopathy noted Chest Chest: abnormal inspection of the chest Resp normal respiratory effort Effort and Inspection: able to speak in complete sentences Cardio regular rate GI soft to palpation and non-tender Inspection: gravid Palpation: soft; Negative for tender external exam normal Amniotic Fluid: ROM+plus Back/Spine no CVA tenderness Extremity normal to inspection, full ROM and no clubbing, cyanosis or edema General Extremity: Negative for calf tenderness or edema Skin Lesions: no lesions Rashes: no rashes Psych mental status grossly normal Labs Labs Labs: Blood Type A NEGATIVE Antibody Screen NEGATIVE Hct 35.1 % (37-47) L Hgb 12.1 g/dL (12.0-15.0) Obstetrics US Syphilis Total Ab Non-reactive Rubella IgG Antibody Reactive (Nonreactive) Hep Bs Antigen Non-Reactive (Nonreactive) Neisseria gonorrhoeae DNA (MIQUEL) Negative (Negative) HIV 1&2 Antibody Non-Reactive (Nonreactive) Glucose 1 Hr 50 gm 142 mg/dL (70-140) H Rhogam given: No Assessment & Plan (1) Supervision of high risk , antepartum: COMMENT: PRR (RPR) JEWEL: 09/07/21, girl Sherri PC: Mervin BF: [place] (2) H/O pre-eclampsia in prior , currently : COMMENT: Diagnosed in labor. nl PreE labs with NOB labs. started baby ASA. (3) Rh negative status during : QUALIFIERS: Trimester: first trimester Qualified Code(s): O26.891 - Other specified related conditions, first trimester; Z67.91 - Unspecified blood type, Rh negative COMMENT: A negative- Rhogam PRN and at 28 weeks. Rhogam given on 04/03/21 in the ER - Given 06/27 (4) Obesity affecting : QUALIFIERS: Trimester: first trimester Qualified Code(s): O99.211 - Obesity complicating , first trimester COMMENT: early 1h GCT given at [facility] (5) Abnormal glucose affecting : COMMENT: Normal 3hr GTT. Failed repeat 1h - 1w home BGT monitoring-WNL, growth US nl PLAN: Patient presents IOL, plan management for with cytotec/zhu/pitocin/AROM Pain management: plans epidural. GBS negative. Management of any complications: none I have reviewed the [facility] and made any clinically relevant updates.
--- NOTE | 2021-09-08 08:12 | PCM.PN.BLA ---
Progress Note pt is laying on her left side and complaining of mild pain current tracing: FHT: Moderate variability reactive no decelerations category I tracing [place]: q2-3 Contractions palpating moderate and mild at times exam: general: A&O x 3 nad Abdomen: gravid, non-tender cx: /-3 reviewed tracing abnormalities since last note: none A/P: zhu bulb placed and cytotec given 3 hrs ago. start pit when able.
[2021-09-08] MEDS: Oxytocin 30 units/NS 500 ml 30 UNITS/500 ML IV.SOLN IV (10:26)
[2021-09-08] MEDS: Lactated Ringers 500 ML 999 ML IV ×3 (10:54→17:23)
[2021-09-08] MEDS: fentaNYL-bupivacaine (epidural) 100 ML BAG EPIDURAL ×2 (11:26→16:54)
[2021-09-08] MEDS: Lactated Ringers 1,000 ML 200 ML IV (13:04)
[2021-09-08] MEDS: Acetaminophen 500 MG Tablet PO (14:33)
[2021-09-08] MEDS: Oxytocin 30 units/NS 500 ml 30 UNITS/500 ML IV.SOLN 334 UNITS IV (18:50)
--- NOTE | 2021-09-08 19:00 | PCM.OP.BLANK ---
Problems Associated Problem List Diagnoses (1) Supervision of high risk , antepartum: (2) Rh negative status during : (3) Obesity affecting : (4) COVID-19 affecting childbirth: Operative Report Date of Procedure: 09/08/21 Patient began pushing and delivered the precipitously with the nurse in the room. The head was delivered atraumatically. The anterior and posterior shoulders delivered without complication followed by the rest of the infant and the was placed on the maternal abdomen. Delayed cord clamping was employed for approximately 60 seconds. Cord was clamped and cut and gentle traction was applied to the cord and the placenta delivered spontaneously immediately following it was noted to be intact with three-vessel cord. The perineum and vagina were inspected and noted to be intact. A small trail of placental membranes was noted which prompted an internal uterine exam. With 3 sweeps with a sterile gloved hand the membranes were extracted out easily. EBL was 200cc. Patient and infant tolerated delivery well. findings: viable female scores 8/9 Procedures Urinary/Genital 52xxx-59xxx: 39034 Vaginal Delivery Only
[2021-09-08] MEDS: oxyCODONE 5 MG Tablet PO (19:49)
[2021-09-08] MEDS: Benzocaine/Lanolin/Aloe Vera 1 SPRAY EACH TOPICAL (19:49)
--- NOTE | 2021-09-08 23:45 | NURSING ---
Report received from Hilda HANSON, taking over patient and infant care at this time.
[2021-09-09] VITALS (7 sets, daily range): BP systolic 108–129; BP diastolic 60–68; PULSE 85–106; RESP 16–18; TEMP 36.3–36.7
[2021-09-09] MEDS: Ibuprofen 600 MG Tablet PO (05:52)
[2021-09-09] MEDS: Acetaminophen 500 MG Tablet 1000 MG PO (07:48)
--- NOTE | 2021-09-09 08:24 | PN.OBGYN_ITS ---
Subjective Subjective patient is sitting up in bed. Still has complaints of hemorrhoid pain and now has some mild mid back pain. Pt denies epigastric pain, nausea, vomiting, chills, cough, or shortness of breath. Lochia is mild to moderate when stands up. Objective Data Objective Data Vital Signs: Vital Signs Temp Pulse Resp BP Pulse Ox 98.0 F 94 16 108/60 98 09/09/21 08:02 09/09/21 08:02 09/09/21 08:02 09/09/21 08:02 09/08/21 21:27 Oxygen Delivery Method Room Air Weight: 265 lb Body Mass Index (BMI) 44.1 Intake & Output: Intake and Output for Last 24 Hours 09/07/21 09/08/21 09/09/21 23:59 23:59 23:59 Intake Total 5233.80 / 5233.80 Output Total 1800 / 2700 900 / 900 Balance 3433.80 / 2533.80 -900 / -900 Lab / Micro Data Result Diagrams: 09/07/21 20:42 Labs: Laboratory Results - last 24 hr 09/08/21 22:45: Screen NEGATIVE, Baby's Blood Type A POSITIVE, Baby's SHARRON NEGATIVE ROS Constitutional Constitutional: Denies chills, fatigue, fever(s), poor appetite or weakness Eyes Eyes: Denies blurry vision, change in vision, seeing flashes or spots in vision ENT HEENT: Denies dizziness, headache(s), loss taste/smell or sore throat Cardiovascular Cardiovascular: Denies chest pain, dizziness, dyspnea, irregular heart rhythm, palpitations or rapid heart rate Respiratory/Chest Respiratory/Chest: Denies chest tightness, cough, dyspnea or breast pain Gastrointestinal Gastrointestinal: Denies abdominal pain, constipation or vomiting Genitourinary Genitourinary: Denies dysuria or flank pain Musculoskeletal Musculoskeletal: Denies difficulty walking, joint pain, limited range of motion or numbness Neurologic Neurologic: Denies abnormal movements, abnormal speech, dizziness, numbness, seizure-like activity or syncope Psychiatric Psychiatric: Denies anxiety, behavioral changes, change in appetite, confusion, depression or suicidal thoughts Physical Exam Const alert, oriented x3 and no apparent distress General Appearance: cooperative and comfortable Resp normal respiratory effort Cardio regular rate GI normal to inspection, nondistended, normoactive bowel sounds GI Narrative: uterus is firm below umbilicus Palpation: soft Bimanual Exam - Adnexa, Other: Negative for cul-de-sac fullness Back/Spine no CVA tenderness and thoraco-lumbar ROM normal Extremity normal to inspection, no clubbing, cyanosis or edema, no calf tenderness and no pedal edema Psych mental status grossly normal, thought process normal, cooperative, affect normal, speech normal, activity/motor behavior normal, denies homicidal ideation and denies suicidal ideation Assessment & Plan (1) Supervision of high risk , antepartum: COMMENT: PRR (RPR) JEWEL: 09/07/21, girl Sherri PC: Mervin BF: [place] PLAN: status post without complications. Day #1 will try flexeril for back pain and lidocaine on perineum/rectal area -may dc to home tonight at 9 pm if doing well. (2) Abnormal glucose affecting : COMMENT: Normal 3hr GTT. Failed repeat 1h - 1w home BGT monitoring-WNL, growth US nl (3) Obesity affecting : QUALIFIERS: Trimester: first trimester Qualified Code(s): O99.211 - Obesity complicating , first trimester COMMENT: early 1h GCT given at NOB Charges/Coding Procedures Urinary/Genital 52xxx-59xxx: 27669 delivery+PP Care([facility])
--- NOTE | 2021-09-09 08:33 | DS.PCM_ITS ---
Providers Date of Admission: 09/07/21 Primary Care Physician: Dr. Constantine Slater, DO Reason For Visit: VAGINAL DELIVERY Diagnosis Discharge Diagnosis (1) Supervision of high risk , antepartum: Status: Acute Code(s): O09.90 - Supervision of high risk , unspecified, unspecified trimester (2) Abnormal glucose affecting : Status: Acute Code(s): O99.810 - Abnormal glucose complicating (3) Obesity affecting : Status: Acute Code(s): O99.210 - Obesity complicating , unspecified trimester Qualifiers: Trimester: first trimester Qualified Code(s): O99.211 - Obesity complicating , first trimester Medications at Discharge Home Medications aspirin 81 mg tablet,delayed release 81 mg PO DAILY 08/26/21 vitamin #56-iron 35 mg and 5 mg-folic acid 1 mg-dha capsule 1 cap PO QHS 09/07/21 docusate sodium [Colace] 100 mg PO BID 14 Days #28 cap 09/09/21 ibuprofen 800 mg PO Q8H PRN 7 Days #30 tab 09/09/21 Hospital Course Procedures - (Spontaneous vaginal delivery ) Summary of Care Provided Minutes Spent on Discharge: 20 Hospital Course: The patient was admitted on 09/07/2021 for induction of labor due to h/o covid in and term multiparous state. The patient delivered a viable baby girl on 09/08/2021 without difficulty. She recovered over night and requested discharge to home the evening of 09/09/2021. The hospitial course was without complications Physical Exam Const alert, oriented x3 and no apparent distress General Appearance: cooperative and comfortable Resp normal respiratory effort Cardio regular rate GI normal to inspection, nondistended, normoactive bowel sounds GI Narrative: uterus is firm below umbilicus Palpation: soft Bimanual Exam - Adnexa, Other: Negative for cul-de-sac fullness Back/Spine no CVA tenderness and thoraco-lumbar ROM normal Extremity normal to inspection, no clubbing, cyanosis or edema, no calf tenderness and no pedal edema Psych mental status grossly normal, thought process normal, cooperative, affect normal, speech normal, activity/motor behavior normal, denies homicidal ideation and denies suicidal ideation Weight / BMI Weight Weight: 265 lb Body Mass Index (BMI) 44.1 ABG / Lab / Microbiology Data Result Diagrams: 09/07/21 20:42 Laboratory: Laboratory Results - last 24 hr 09/08/21 22:45: Screen NEGATIVE, Baby's Blood Type A POSITIVE, Baby's SHARRON NEGATIVE D/C Instructions Discharge Diet: No restrictions May resume sexual activity in: 4-6 weeks Call your doctor if your incision/area has: Continuous Slow Oozing, Sudden Increased Bleeding, Increased Pain/ Swelling, Increased Redness and Foul Sm elling Discharge Please Follow Up With: Delia Short DO When: Call [phone] to make an appointment with your doctor in 6 weeks. If you had elevated blood pressure or 4th degree laceration, you will need to be seen in 2 weeks. Meaningful Use Info Meaningful Use Diagnoses (Choose all that apply): None applicable Discharge Plan Admission Admit Date/Time: 09/07/21 19:10 Primary Reason for Your Visit: induction of labor Attending Provider: Delia Short Primary Care Provider: Constantine Slater Discharge Orders/Prescriptions Prescriptions: New ibuprofen 800 mg tablet 800 mg PO Q8H PRN (Reason: pain) 7 Days Qty: 30 RF: 0 docusate sodium [Colace] 100 mg capsule 100 mg PO BID 14 Days Qty: 28 RF: 0 Continued aspirin [Adult Low Dose Aspirin] 81 mg tablet,delayed release (DR/EC) 81 mg PO DAILY RF: 0 vitamin #56-iron 35 mg and 5 mg-folic acid 1 mg-dha capsule 35 mg iron-5 mg iron-1 mg 1 cap PO QHS RF: 0 Referrals / Follow Up: Constantnie Sltaer DO [Primary Care Provider] - Delia Short DO [STAFF PHYSICIAN] - (follow up in 2 weeks for an incision check) Disposition Disposition (needs filled in before D/C Order can be placed): Home, Self Care
--- NOTE | 2021-09-09 08:33 | PCM.DC ---
Discharge Instructions Diet Discharge Diet: No restrictions Activity Discharge Activity: Return to Normal Activity, May Not Drive (while taking narcotic pain medications.) and May Shower May resume sexual activity in: 4-6 weeks Dressing / Incision Call your doctor if your incision/area has: Continuous Slow Oozing, Sudden Increased Bleeding, Increased Pain/ Swelling, Increased Redness and Foul Smelling Discharge Follow Up Care Please Follow Up With: Delia Short DO When: Call [phone] to make an appointment with your doctor in 6 weeks. If you had elevated blood pressure or 4th degree laceration, you will need to be seen in 2 weeks. Test Results: Test results from this visit will be discussed in further detail at your follow-up appointment, if applicable. Discharge Plan Admission Admit Date/Time: 09/07/21 19:10 Attending Provider: Delia Short Primary Care Provider: Constantine Slater Discharge Orders/Prescriptions Prescriptions: No Action aspirin [Adult Low Dose Aspirin] 81 mg tablet,delayed release (DR/EC) 81 mg PO DAILY RF: 0 vitamin #56-iron 35 mg and 5 mg-folic acid 1 mg-dha capsule 35 mg iron-5 mg iron-1 mg 1 cap PO QHS RF: 0
[2021-09-09] MEDS: Lidocaine 2% Jelly 1 APPLIC Tube TOPICAL (11:02)
[2021-09-09] MEDS: cycloBENZAPRine HCl 10 MG Tablet PO (11:02)
== END 2021-09-09 21:45 | disposition home or self-care (01) | DRG 560 ==
PROVIDERS: Admitting Provider Obstetrics & Gynecology; PCP Student in an Organized Health Care Education/Training Program; Visit Provider Obstetrics & Gynecology
DX: O99.214 Obesity complicating childbirth (principal); O62.3 Precipitate labor; Z3A.40 40 weeks gestation of pregnancy; Z37.0 Single live birth; E66.9 Obesity, unspecified; O99.810 Abnormal glucose complicating pregnancy; O73.0 Retained placenta without hemorrhage; O26.893 Other specified pregnancy related conditions, third trimester; Z86.16 Personal history of COVID-19; Z67.91 Unspecified blood type, Rh negative
CPT/HCPCS: 59025; 59050; 76816; 85025; 85461; 86850; 86900; 86901; 90384; 99218; J7120; A4216; G0378; J2790

== ENCOUNTER 2021-12-30 11:56 | Outpatient (CLI) | payer MEDICAID, SELFPAY ==
--- NOTE | 2021-12-30 12:00 | US_ITS ---
STUDY: ULTRASOUND OF THE FEMALE PELVIS - COMPLETE REASON FOR EXAM: Female, 26 years old. Abnormal uterine bleeding LMP: 11/03/21 TECHNIQUE: Transabdominal and Transvaginal TECHNICAL QUALITY: Adequate. COMPARISON: None. FINDINGS: The uterus is anteverted and is in a midline position. The uterus measures 10.1 x 6.1 x 4.2 cm. Normal uterine cervix. The endometrium measures 5.5 mm in thickness, and is heterogeneous (striated). There is no demonstrated endometrial mass. There is no demonstrated myometrial mass. I.U.D. - The patient does not have an I.U.D. The right ovary is visualized. The right ovary measures 3.7 x 2.7 x 2.7 cm. There is no right ovarian cyst or ovarian mass. There is no visualized right adnexal mass or complex lesion. There is normal arterial and normal venous vascularity. The left ovary is visualized. The left ovary measures 3.2 x 2.2 x 2.0 cm. There is no left ovarian cyst or ovarian mass. There is no visualized left adnexal mass or complex lesion. There is normal arterial and normal venous vascularity. There is no fluid in the cul-de-sac. The pre void volume of the bladder was 213.26 ml. The post void volume of the bladder was less than 10 ml. Polycystic ovary disease: No. US/Transvaginal Non- IMPRESSION: No suspicious sonographic findings Electronically Signed: Toro Chiang MD at 13:17 EST ,
--- NOTE | 2021-12-30 12:00 | US_ITS ---
STUDY: ULTRASOUND OF THE FEMALE PELVIS - COMPLETE REASON FOR EXAM: Female, 26 years old. Abnormal uterine bleeding LMP: 11/03/21 TECHNIQUE: Transabdominal and Transvaginal TECHNICAL QUALITY: Adequate. COMPARISON: None. FINDINGS: The uterus is anteverted and is in a midline position. The uterus measures 10.1 x 6.1 x 4.2 cm. Normal uterine cervix. The endometrium measures 5.5 mm in thickness, and is heterogeneous (striated). There is no demonstrated endometrial mass. There is no demonstrated myometrial mass. I.U.D. - The patient does not have an I.U.D. The right ovary is visualized. The right ovary measures 3.7 x 2.7 x 2.7 cm. There is no right ovarian cyst or ovarian mass. There is no visualized right adnexal mass or complex lesion. There is normal arterial and normal venous vascularity. The left ovary is visualized. The left ovary measures 3.2 x 2.2 x 2.0 cm. There is no left ovarian cyst or ovarian mass. There is no visualized left adnexal mass or complex lesion. There is normal arterial and normal venous vascularity. There is no fluid in the cul-de-sac. The pre void volume of the bladder was 213.26 ml. The post void volume of the bladder was less than 10 ml. Polycystic ovary disease: No. US/Pelvic (Non ) IMPRESSION: No suspicious sonographic findings Electronically Signed: Toro Chiang MD at 13:17 EST ,
== END 2021-12-30 23:59 | disposition home or self-care (01) ==
LOC: US 11:57
PROVIDERS: PCP Student in an Organized Health Care Education/Training Program; Referring Provider Obstetrics & Gynecology; Visit Provider Obstetrics & Gynecology
DX: N93.9 Abnormal uterine and vaginal bleeding, unspecified (principal)
CPT/HCPCS: 76830; 76856

== ENCOUNTER 2022-01-03 09:13 | Outpatient (CLI) | payer MEDICAID, SELFPAY ==
[2022-01-09 13:01] LABS: HPV Reflexed? NOT INDICATED
== END 2022-01-03 23:59 | disposition home or self-care (01) ==
LOC: LABSPEC 01-04 09:14
PROVIDERS: PCP Student in an Organized Health Care Education/Training Program; Visit Provider Obstetrics & Gynecology
DX: Z12.4 Encounter for screening for malignant neoplasm of cervix (principal)
CPT/HCPCS: 88175; G0145

== ENCOUNTER 2022-06-02 07:06 | Day surgery (SDC) | payer MEDICAID, SELFPAY ==
[2022-06-02] VITALS (7 sets, daily range): BP systolic 117–175; BP diastolic 68–80; PULSE 60–80; RESP 16–18; TEMP 36.3–36.9; O2SAT 93–100; BMI 38.9
--- NOTE | 2022-06-02 07:35 | PCM.HP.BLA ---
History and Physical Date of Admission: 06/02/22 MR#: [id number] Acct: [id number] Name:JOE MIN Rep #: [id number] : 1995 ? ? Provider: Dr. Delia Perez, DO Age/Sex:? 27/F ? ? Location: [facility] [place] Status: Signed Intake Vital Signs ? 03/22/2216:24 04/05/2215:31 Height 5 ft 9 in 5 ft 9 in Weight: ? 237 lb BMI ? 34.9 BP ? 119/78 Intake Visit Reasons:?discuss hormones, ref by PCP Chief Complaint: hormone consult Fringe Maker Required: No Is patient in pain?: No Allergies nitrofurantoin [From Macrobid] Allergy (Verified 01/03/22 13:08) Itching Medications tranexamic acid 650 mg tablet 1,300 mg PO TID 5 Days #30 tab 04/05/22 [Rx Confirmed 04/05/22] Is last menstrual period known: Yes Last Menstral Period: 03/29/22 Post menopausal: No Patient : No PFSH Medical History? Headache Missed Pre-eclampsia Surgical History? H/O dilation and curettage History of ankle surgery S/P right knee surgery Family History? Mother Diabetes HypertensionBrother DiabetesGrandfather DiabetesFather CVA (cerebral vascular accident) HypertensionGrandmother Breast cancer Lung cancer Social History? Smoking Status:? Never smoker alcohol intake:? never substance use type:? does not use caffeine:? Yes what type of physical activity do you participate in:? walking seatbelt use:? always do you feel safe at home:? Yes additional social history:? Boyfriend-[place] ? HPI discuss hormones, ref by PCP Details: JOE MARIEE is a 27 year old who presents for discussion about issues.? She states that her PCP demanding that we check her for hormone imbalance based on symptoms of weight gain and heavy periods.? Patient has stopped her OCPs and is using the rhythm method for contraception currently.? She is complaining of deep pain with intercourse and heavy menses.? She has also decided that she is no longer interested in childbearing but is not wanting to try an IUD or control of any kind.? Her menses are every 28 days lasting approximately 7 days and heavy.? She has not skipped a month or gone several months without a menses.? She does not experience abnormal facial hair growth or hair loss.? Recent ultrasound showed normal-appearing ovaries without signs of polycystic appearance. Female Reproductive History Last Menstral Period: 03/29/22 Pregancy History ? ? ? 3 ? Elective abortions ? Hx Para ? ? ? 2 ? Spontaneous abortions ? ? ? 1 Hx # Term Pregnancies ? Ectopic pregnancies ? Hx # Pregnancies ? Multiple births ? # of living children ? ? ? 2 Past Pregnancies Del. Date Name GA/Weeks Outcome Route Bth Weight Gen Labor Lgth Anesthesia Del Locatn Provider FOB 07/30/18 [facility] 41 live - full term 9lbs 1oz Male 36 hours epidural [facility] Dr. Yunior Callahan 09/08/21 [facility] 40 live - full term 8lbs 13oz Female ? ? [facility] Dr. Bonner Delivery Date: 07/30/18 Pre-eclampsia during labor, HR decels, episiotomy Mars[facility] Boggs Delivery Date: 09/08/21 COVID + Flakita,Marsha ROS Const ROS Unobtainable: All systems reviewed & are unremarkable except as noted in H Resp Resp: Reports system reviewed and no additional complaints, except as documented; Denies cough GI GI: Reports as per HPI Psych Psych: Reports system reviewed and no additional complaints, except as documented Exam Const General: cooperative, healthy appearing, comfortable and no acute distress Resp Effort & Inspection: normal respiratory effort Skin General: no rashes or lesions noted Psych Appearance: grossly normal Speech and Movement: speech and movement normal Coding Level of Care Code Off vis,est,level 4 Diagnoses Abnormal uterine bleeding? N93.9 Contraceptive management? Z30.9 Assessment and Plan Assessment and Plan (1) Abnormal uterine bleeding: ?Status:?Acute (2) Contraceptive management: ?Status:?Acute ?Plan - Dr. Delia Perez, DO: Patient is requesting permanent sterilization and also is worried that she has endometriosis.? She is not yet ready for a hysterectomy due to and the recovery time.? 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 She would like to proceed with a laparoscopic salpingectomy and diagnostic laparoscopy to rule out endometriosis.? She is also interested in the medication tranexamic acid to help with heavy menses in the meantime.? Title 19 form was signed today we will need to bring her back in 30 days for preop visit surgery will be scheduled 30 days from the signed consent. Plan Details Other Medications: ?New: ? tranexamic acid (Lysteda) ?? take for first 5 days of menses 1,300 mg (2 x 650 mg) PO TID 5 days 30 tabs 12RF ? ? UPDATE- I have seen the patient and performed any clinically relevant updates to the history and physical exam. Delia Perez, DO
[2022-06-02] MEDS: Lactated Ringers 1,000 ML 125 ML IV ×2 (07:56→10:05)
[2022-06-02 08:02] LABS: Hematocrit 35.3 % (37-47); Hemoglobin 11.8 g/dL (12.0-15.0); Mean Corp Hgb Conc 33.4 g/dL (32-36); Mean Corpuscular Hgb 27.9 pg (27.0-32.0); Mean Corpuscular Volume 83.5 fL (81-99); Mean Platelet Vol. 10.6 fl (6.2-12.0); Platelet Count 203 K/mm3 (150-450); RBC Distribution Width CV 12.9 % (11.6-14.6); Red Blood Count 4.23 M/mm3 (4.2-5.4); White Blood Count 6.4 K/mm3 (4.4-11.0)
[2022-06-02 08:14] LABS: Internal QC Validated? YES +Cl - CLEAR BKGD; Pregnancy, Urine Negative Negative
[2022-06-02] MEDS: Bupivacaine 0.25% 30 ML Vial (08:29)
--- NOTE | 2022-06-02 08:35 | DCINST_ITS ---
Discharge Instructions Diet Discharge Diet: No restrictions Activity Discharge Activity: Return to Normal Activity, May Not Drive (for two weeks or while taking narcotic pain medications.), May Shower and May Take a Tub Bath (in 7 days) May resume sexual activity in: 1 week Weight Bearing Status: Full weight bearing Dressing / Incision Call your doctor if you observe: Using more than 1 pad per hour, Shortness of breath, Chest pain and Uncontrolled pain Suture Line Care: Avoid Pulling/Pushing and Avoid Pinching/Bending Remove Dressing in: 1 week (if present) Cleanse incision/area with: Soap & Water and Keep Dressing Clean & Dry Follow Up Care Please Follow Up With: Delia Perez DO When: Call to make an appointment with your doctor for a follow up incision check in 1-2 weeks. Test Results: Test results from this visit will be discussed in further detail at your follow- up appointment, if applicable. Discharge Plan Admission Primary Reason for Your Visit: diagnostic laparoscopy, bilateral salpingectomy Attending Provider: Delia Perez Primary Care Provider: Constantine Slater Discharge Orders/Prescriptions Prescriptions: New ibuprofen 600 mg tablet 600 mg PO Q6H PRN (Reason: pain) 7 Days Qty: 30 0RF oxycodone-acetaminophen [Percocet] 5-325 mg tablet 1 tab PO Q6H PRN (Reason: pain) 3 Days Qty: 10 0RF Continued tranexamic acid [Lysteda] 650 mg tablet 1,300 mg PO TID 5 Days Qty: 30 12RF Rx Instructions: take for first 5 days of menses folic acid 1 mg Tablet 1 mg PO DAILY cyanocobalamin (vitamin B-12) 25 mcg Tablet 50 mcg PO DAILY Referrals / Follow Up: Constantine Slater DO [Primary Care Provider] - Disposition Disposition (needs filled in before D/C Order can be placed): Home, Self Care
--- NOTE | 2022-06-02 08:38 | OP.PCM_ITS ---
Operative Report Date of Procedure: 06/02/22 preoperative diagnosis: pelvic pain, desires permanent sterilization postoperative diagnosis: pelvic pain, desires permanent sterilization procedure: diagnostic laparoscopy, bilateral salpingectomy surgeon: Dr. Delia Perez DO executive marketing assistant: TESSA Weathers EBL: 10cc Urine output:75cc Anesthesia: General Findings: normal uterus, tubes, ovaries, no signs of endometriosis or adhesions Description of procedure: Patient was taken in the operating room and was placed under general anesthesia was prepped and draped in normal sterile fashion in the dorsal lithotomy position. Bladder was drained of clear urine and SCDs were on preoperatively. Uterus was sounded and a uterine manipulator was placed after dilating. Attention was then paid to the abdominal portion of the procedure and the umbilicus was elevated and injected with Marcaine and after a 5 mm incision was made, 5 mm trocar was inserted into the abdomen under direct visualization using the laparoscope. Abdomen was insufflated with CO2 gas and a 5 mm optical trocar was placed under direct visualization. A left lower quadrant 5 mm port and a mini grasper suprapubically were placed under direct visualization. Uterus was well visualized and bilateral fallopian tubes identified and bilateral tubes were elevated and transecting across the mesosalpinx and the attachment to the uterine corpus bilaterally the tubes were removed without complication. Excellent hemostasis was noted. Fallopian tubes were removed through the lower port sites without complication. Liver and upper abdomen were visualized notably within normal limits and no other gross abnormalities were seen in the abdomen. All instruments removed from the abdomen after gas was desufflated. Port sites were closed with 3-0 Monocryl Steri's and op sites were applied. All instruments removed from the vagina and patient was awoken and taken recovery in stable condition. Multi Select Codes Urinary/Genital Urinary/Genital CPT Codes: 75480 Laproscopic BS/O
--- NOTE | 2022-06-02 08:40 | FALS_PTH ---
PATIENT: JOE MARIEE LOC: [facility] [place] U#:[id number] AGE/SX: 27/F ROOM: RE06/02/[address]: Dr. Delia Perez DO : 1995 BED: DIS: 06/02/2022 SPEC #: [id number] RECD: 06/02/22 11:24 STATUS: KYLER CASPER #: [id number] ZACK: 06/02/22 08:[address]: Delia Perez DEPT: SURGICAL PATHOLOGY RECD BY: Ja Staley ENTERED: 06/02/22 11:47 SP TYPE: FALL TUBES OTHR DR: DO Dr. Ulices Rueda MD Tissues: Fallopian tube Procedures: Surgery Specimen Level II HEADER OPERATION: Diagnostic laparoscopy, salpingectomy PRE-OP DIAGNOSIS: Abnormal uterine bleeding, contraceptive management TISSUE SUBMITTED: Bilateral fallopian tubes MICROSCOPIC DIAGNOSIS Bilateral fallopian tubes, salpingectomy: Bilateral fallopian tubes, no pathologic diagnosis. A paratubal cyst. SMUA:corrine 06/05/2022 MICROSCOPIC DESCRIPTION Slides are reviewed. GROSS DESCRIPTION Received in fixative is one container labeled with the patient's name and designated bilateral fallopian tubes. The specimen consists of bilateral fallopian tubes including fimbrial ends. One fallopian tube measures 6.5 cm in length and 0.5 cm in diameter. The second fallopian tube is received in multiple pieces and measures 7 cm in length and 0.5 cm in diameter. The fallopian tubes are not identified as right or left. Sections reveal unremarkable cut surfaces. A small paratubal cyst is noted adjacent to one of the pieces of the second fallopian tube. Group Tester sections are submitted in two cassettes as follows: 1 ? intact fallopian tube, 2 ? fallopian tube received in multiple pieces and paratubal cyst. / SUMA:corrine 06/02/2022 TC:5 CPT: 21723 x2
[2022-06-02] MEDS: HYDROcodone Bitartrate/Apap 5/325 Tablet PO (11:00)
== END 2022-06-02 12:03 | disposition home or self-care (01) ==
LOC: SDC 07:08 → AC 07:09
PROVIDERS: PCP Student in an Organized Health Care Education/Training Program; Referring Provider Internal Medicine Hematology & Oncology; Visit Provider Obstetrics & Gynecology
PROC: (CPT 58661; principal; 2022-06-02 08:25)
DX: Z30.2 Encounter for sterilization (principal); N83.8 Other noninflammatory disorders of ovary, fallopian tube and broad ligament
CPT/HCPCS: 58661; 00840; 81025; 85027; 86850; 86900; 86901; 88302; J7120; C1760; J2405

== ENCOUNTER → 2022-08-31 | Outpatient (CLI) | payer MEDICAID, SELFPAY ==
--- NOTE | 2022-08-31 14:58 | US_ITS ---
STUDY: ULTRASOUND OF THE FEMALE PELVIS - COMPLETE REASON FOR EXAM: Female, 27 years old. PAIN TECHNIQUE: Endovaginal. Transvaginal US was obtained to better visualized the ovaries. COMPARISON: 2.25.22 FINDINGS: The uterus is anteverted and is tilted to the left side of the pelvis. The uterus measures 10.1 cm. Normal uterine cervix. The endometrium measures 18 mm in thickness, and is heterogeneous (striated). There is no demonstrated endometrial mass. There is no demonstrated myometrial mass. I.U.D. - The patient does not have an I.U.D. The right ovary is visualized. The right ovary measures 3.7 cm. Dominant follicle measures 23 mm. There is no visualized right adnexal mass or complex lesion. There is normal arterial and normal venous vascularity. The left ovary is visualized. The left ovary measures 3 cm. There is no left ovarian cyst or ovarian mass. There is no visualized left adnexal mass or complex lesion. There is normal arterial and normal venous vascularity. There is no fluid in the cul-de-sac. Urinary bladder volume is (in cc) 584. US/Pelvic (Non ) IMPRESSION: There are no acute findings. Electronically Signed: Yeison Orellana MD at 17:08 EDT ,
== END | disposition home or self-care (01) ==
LOC: US 14:57
PROVIDERS: PCP Student in an Organized Health Care Education/Training Program; Referring Provider Obstetrics & Gynecology; Visit Provider Obstetrics & Gynecology
DX: R10.2 Pelvic and perineal pain (principal)
CPT/HCPCS: 76830; 76856; 93976

== ENCOUNTER → 2023-05-10 | Outpatient (CLI) | payer MEDICAID, SELFPAY ==
[2023-05-15 12:09] LABS: HSV 1 By PCR Negative (Negative); HSV 2 By PCR Negative (Negative); HSV 2 IgG 1.07 index (0.00-0.90)
== END | disposition home or self-care (01) ==
LOC: LAB 16:32
PROVIDERS: PCP Student in an Organized Health Care Education/Training Program; Referring Provider Obstetrics & Gynecology; Visit Provider Obstetrics & Gynecology
DX: R10.2 Pelvic and perineal pain (principal); Z20.2 Contact with and (suspected) exposure to infections with a predominantly sexual mode of transmission
CPT/HCPCS: 36415; 86695; 86696; 87529